=== PATIENT | male | born 1955 | race Caucasian/White ===

== ENCOUNTER → 2019-07-30 09:39 | Outpatient (CLI) | payer BC, SELFPAY ==
[2019-07-30 10:35] LABS: Cholesterol 192 mg/dL (200); High Density Lipoprotein 47 mg/dL; PSA,Total - Annual Screen 4.73 ng/mL (0.00-4.00); Triglycerides 146 mg/dL; Very Low Density Lipoprotein 29 mg/dL (5-40)
== END ==
PROVIDERS: Family Provider Family Medicine; PCP Family Medicine; Referring Provider Family Medicine; Visit Provider Family Medicine
DX: Z13.220 Encounter for screening for lipoid disorders (principal); Z12.5 Encounter for screening for malignant neoplasm of prostate
CPT/HCPCS: 36415; 80061; 84153; G0103

== ENCOUNTER → 2020-05-22 09:01 | Outpatient (CLI) | payer BC, SELFPAY ==
[2020-05-22 10:48] LABS: AST(SGOT) 14 U/L (15-37); Alanine Aminotransfer ALT/SGPT 29 U/L (16-61); Albumin, Serum 3.7 g/dL (3.2-5.0); Alkaline Phosphatase 86 U/L (45-117); Anion Gap 2 (5-15); BUN 13 mg/dL (7-18); BUN/Creat Ratio 11.7 RATIO (10-20); Calcium,Total 8.9 mg/dL (8.5-10.1); Chloride 108 mmol/L (98-107); Cholesterol 127 mg/dL (200); Creatinine, Serum 1.11 mg/dL (0.70-1.30); EST Glomerular Filtration Rate 71 mL/min (>60); Est Glom Filt Rate - Afr Amer 86 mL/min (>60); Globulin 3.6 g/dL (2.2-4.2); Glucose 88 mg/dL (74-106); High Density Lipoprotein 58 mg/dL; Potassium 4.4 mmol/L (3.5-5.1); Protein, Total 7.3 g/dL (6.4-8.2); Sodium Level 139 mmol/L (136-145); Triglycerides 48 mg/dL; Very Low Density Lipoprotein 10 mg/dL (5-40)
== END ==
PROVIDERS: PCP Family Medicine; Referring Provider Family Medicine; Visit Provider Family Medicine
DX: E78.5 Hyperlipidemia, unspecified (principal); R97.20 Elevated prostate specific antigen [PSA]
CPT/HCPCS: 36415; 80053; 80061; 84153

== ENCOUNTER → 2020-08-06 | Outpatient (CLI) | payer BC, SELFPAY ==
--- NOTE | 2020-08-06 | IMM_PTH ---
PATIENT: BHARAT HADLEY LOC: [facility] U#:[id number] AGE/SX: 64/M ROOM: RE08/06/[address]: Dr. Darian Albarran MD : 1955 BED: DIS: 08/06/2020 SPEC #: [id number] RECD: 08/08/20 13:17 STATUS: MARIO ALBERTO REQ #: [id number] JAMAL: 08/06/20 00:[address]: Darian Albarran DEPT: IMMUNOHISTOCHEMISTRY RECD BY: Mary Middleton ENTERED: 08/08/20 13:17 SP TYPE: IMMUNO OTHR DR: Dr. Isidro Gaspar MD Tissues: D - PROSTATE LEFT Procedures: P40 (add) 34BE12 (initial) PHYSICIAN & INSTITUTION [place] [id number] SPECIMEN INFORMATION: Tissue Source: D - Left prostate, apex, core biopsy Clinical Info: Elevated PSA Specimen Number: [id number] CPT code: 28014, 55236 METHODOLOGY: Deparaffinized sections of prefer/formalin-fixed tissue or PAP/DQ stained slides are incubated with monoclonal/polyclonal antibodies/oligonucleotide probes. Localization is made via biotin free immunoperoxidase method. Appropriate controls are performed and reacted as expected. Results on target cell population are indicated in the following table: RESULTS: ANTIBODY / CLONE RESULT Block D P40 (BC28) negative 34BE12 (34BE12) negative These tests were developed and their performance characteristics determined by [facility]. They may not have been cleared or approved by the U.S. Food and Drug Administration. The FDA has determined that such clearance or approval is not necessary. The above immunohistochemical/dualISH markers are ordered and reviewed by the Pathologist. INTERPRETATION: D. Left prostate, apex, core biopsy: Consistent with focus of adenocarcinoma. AM:hanh 08/09/20
--- NOTE | 2020-08-06 | PROSBIL_PTH ---
PATIENT: BHARAT HADLEY LOC: [facility] U#:[id number] AGE/SX: 64/M ROOM: RE08/06/[address]: Dr. Darain Albarran MD : 1955 BED: DIS: 08/06/2020 SPEC #: [id number] RECD: 08/07/20 07:47 STATUS: MARIO ALBERTO RESweetie #: [id number] JAMAL: 08/06/20 00:[address]: Darian Albarran DEPT: SURGICAL PATHOLOGY RECD BY: Abdullahi Patel ENTERED: 08/07/20 07:48 SP TYPE: PROST BX SHARAN DR: Dr. Isidro Gaspar MD Tissues: A - PROSTATE RIGHT B - PROSTATE RIGHT C - PROSTATE RIGHT D - PROSTATE LEFT E - PROSTATE LEFT F - PROSTATE LEFT Procedures: PROSTATE BX HEADER OPERATION: Prostate biopsy PRE-OP DIAGNOSIS: Elevated PSA TISSUE SUBMITTED: A - Right apex, B - Right mid, C - Right base, D - Left apex, E - Left mid, F - Left base MICROSCOPIC DIAGNOSIS A. Right prostate, apex, core biopsy: Mild chronic inflammation. B. Right prostate, mid, core biopsy: Benign prostatic tissue. C. Right prostate, base, core biopsy: Mild chronic inflammation. D. Left prostate, apex, core biopsy: Adenocarcinoma. [place] grade: 6 (3+3) Cores involved: 1 out of 1 core Tissue involved: <1% Greatest tumor length: <1 mm Chronic prostatitis with focal acute prostatitis. See comment. E. Left prostate, mid, core biopsy: Adenocarcinoma. [place] grade: 6 (3+3) Cores involved: 2 out of 2 cores Tissue involved: 60% Greatest tumor length: 6 mm F. Left prostate, base, core biopsy: Adenocarcinoma. [place] grade: 6 (3+3) Cores involved: 1 out of 2 cores Tissue involved: 45% Greatest tumor length: 7.5 mm AM:hanh 08/08/20 COMMENT D. Immunohistochemistry ([id number]) supports the above diagnosis. Case has been reviewed in consultation with Dr. Rogel who concurs with the above diagnosis. IDC:LAURA MICROSCOPIC DESCRIPTION Slides are reviewed. GROSS DESCRIPTION A - Received is one container designated prostate, right apex. The specimen consists of one elongated fragment of light salgado-white soft tissue measuring 1 cm in length and 0.1 cm in diameter. The specimen is totally submitted in one cassette. B - Received is one container designated prostate, right mid. The specimen consists of four elongated fragments of light salgado-white soft tissue measuring 0.3 to 0.6 cm in length and 0.1 cm in diameter. The specimen is totally submitted in one cassette. C - Received is one container designated prostate, right base. The specimen consists of two elongated fragments of light salgado-white soft tissue each measuring 1.5 cm in length and 0.1 cm in diameter. The specimen is totally submitted in one cassette. D - Received is one container designated prostate, left apex. The specimen consists of one elongated fragment of light salgado-white soft tissue measuring 1 cm in length and 0.1 cm in diameter. The specimen is totally submitted in one cassette. E - Received is one container designated prostate, left mid. The specimen consists of two elongated fragments of light salgado-white soft tissue each measuring 1.4 cm in length and 0.1 cm in diameter. The specimen is totally submitted in one cassette. F - Received is one container designated prostate, left base. The specimen consists of two elongated fragments of light salgado-white soft tissue measuring 1.4 and 2 cm in length and 0.1 cm in diameter. The specimen is totally submitted in one cassette. / SJ:rg 08/07/20 TC:0 CPT: 19611 x6 ADDENDUM ADDENDUM ADDENDUM ADDENDUM ADDENDUM ADDENDUM ADDENDUM ADDENDUM 10/12/2020 11:33 ADDENDUM 10/12/2020 11:33 ADDENDUM 10/12/2020 11:33 ADDENDUM 10/12/2020 11:33 ADDENDUM 10/12/2020 11:33 An order for Oncotype testing was received from Dr. Albarran. This necessitated case review, block and slide selection by pathologist at [facility]. Genomic Prostate Score = 52 Results of the complete Oncotype testing (Sokrati report) are viewable in EMR under: Reports - Pathology - Lab Pathology Report, Scanned.
== END | disposition home or self-care (01) ==
LOC: LABSPEC 16:43
PROVIDERS: PCP Family Medicine; Visit Provider Urology
DX: R97.20 Elevated prostate specific antigen [PSA] (principal)
CPT/HCPCS: 88305; 88341; 88342; G0416

== ENCOUNTER → 2020-10-25 14:29 | Outpatient (CLI) | payer MEDICARE, SELFPAY | PROVIDERS: PCP Family Medicine; Referring Provider Urology; Visit Provider Urology | DX: U07.1 COVID-19 (principal) | CPT/HCPCS: 87635; C9803; U0005; U0003 ==

== ENCOUNTER 2020-11-14 06:30 | Day surgery (SDC) | payer MEDICARE, SELFPAY ==
[2020-11-14 07:17] VITALS: BP 129/81; PULSE 71; RESP 16; TEMP 36.4; O2SAT 97; BMI 31.8
[2020-11-14] MEDS: Lactated Ringers 1,000 ML 100 ML IV (07:23)
--- NOTE | 2020-11-14 07:42 | PCM.HP.STD ---
Problem List (1) Prostate cancer Status: Acute History of Present Illness Date of Admission: 11/14/20 Chief Complaint: Prostate cancer The patient is a 65 year old male with prostate cancer is elected undergo radiation therapy today we will plan to place gold markers and spacer gel matrix. Past Medical History Allergies No Known Allergies Allergy (Verified 10/25/20 08:11) Home Medications: Ambulatory Orders Medication Instructions Recorded Atorvastatin Calcium 20 mg PO QHS 10/25/20 Surgical History: no surgical history Smoking Status: Light Smoker (<10/day) Tobacco Use: Cigars Review of Systems Constitutional: Denies: Chills, Fever, Weight Change HEENT: Denies: Head Aches, Sinus Congestion, Sinus Drainage Cardiovascular: Denies: Chest Pain, Palpitations Respiratory: Denies: Cough, Shortness of breath at rest, Sputum production Gastrointestinal: Denies: Abdominal Pain, Nausea, Vomiting Genitourinary: Denies: Dysuria Musculoskeletal: Denies: Joint Pain, Joint Tenderness Skin: Denies: Rash, Wounds Neurological: Denies: Numbness, Tingling, Focal weakness Psychiatric: Denies: Anxiety, Depression, Homicidal Ideations, Suicidal Ideations Hematologic/ Lymphatic: Denies: Easy Bruising, Easy Bleeding VTE Information - Inpt Only VTE Present on Admission: No - Physical Exam Vitals/I&O's: Vital Signs Temp Pulse Resp BP Pulse Ox 97.6 F L 71 16 129/81 H 97 11/14/20 07:17 11/14/20 07:17 11/14/20 07:17 11/14/20 07:17 11/14/20 07:17 Oxygen Delivery Method Room Air Weight: 100.7 kg Body Mass Index (BMI) 31.8 General: Alert, Oriented x3, Cooperative HEENT: Atraumatic, PERRLA, EOMI, Normocephalic Neck: Supple, No JVD, Negative Carotid Bruits Lungs: Clear to auscultation, Normal air movement Cardiovascular: Regular rate, No murmurs Abdomen: Bowel Sounds Present, Soft, Non Tender Extremities: No edema, Capillary Refill Less than 3 Seconds Skin: No rashes, No breakdown Musculoskeletal: No Tenderness to Palpation of Joints or Extremities Neurological: Cranial nerves II-XII grossly intact Psych/Mental Status: Normal Affect, Appropriate Current Medications Cefazolin Sodium 2 gm/ Sodium (Chloride) 110 mls @ 150 mls/hr IV PREOP ONE Stop: 11/14/20 08:13 Lactated Ringer's () 1,000 mls @ 100 mls/hr IV .Q10H LUIS Last Admin: 11/14/20 07:23 Dose: 100 mls/hr Documented by: Assessment/Plan All Active Problems Prostate cancer (Acute) Plan to place gold markers and still spacer gel matrix
--- NOTE | 2020-11-14 07:44 | DCINST_ITS ---
Discharge Diet: Light diet - advance as tolerated Discharge Activity: Return to Normal Activity Allergies/Adverse Reactions: Allergies No Known Allergies Allergy (Verified 10/25/20 08:11) Medications to take at Discharge Atorvastatin Calcium 20 mg PO QHS 10/25/20 Primary Care Physician: Isidro Gaspar MD [Primary Care Provider] - Test Results: Test results from this visit will be discussed in further detail at your follow- up appointment, if applicable. Please Follow Up With: Darian Albarran MD When: in 2 weeks, please call to make an appointment.
[2020-11-14] MEDS: Cefazolin 2 GM in 0.9% Normal Saline 100 ML IV (08:37)
--- NOTE | 2020-11-14 08:57 | OP.PCM_ITS ---
Problem List (1) Prostate cancer Status: Acute Report of Operation Date of Procedure: 11/14/20 Pre-Operative Diagnosis: Prostate cancer Post-Operative Diagnosis: Same Surgery/Procedure Performed:: Transrectal sound ultrasound-guided placement of gold fiducial markers, and also spacer organ residual matrix Description of Surgical Findings:: Patient was taken back to the operating room, after induction of anesthesia, he was placed in dorsolithotomy position. The patient had a bowel prep preoperatively. He was given IV antibiotics preoperatively. He underwent a timeout procedure. He was marked and the procedure was reviewed with the operating room staff. Once he was in dorsolithotomy position. The genitals and perineum were prepped and draped in the usual sterile fashion. I then introduced a biplanar ultrasound probe into the rectum and performed ultrasonography on the prostate. The prostate seminal vesicles, the base, the mid prostate, the apex were identified. The Denonvilliers' fascia was also identified. I first advanced the first marker in the patient's right side to the mid prostate and deployed the first portable track line marker. The second portable track line marker was then advanced under ultrasound guidance to the patient's left mid prostate . And finally the third portable track line marker was advanced of the prostate left apex and deployed under ultrasound guidance. All 3 markers were confirmed to be present within the prostate on ultrasonography. I then introduced a biplanar ultrasound probe into the rectum and performed ultrasonography and identified the Denonvilliers' fascia the prostate mid base and apex and seminal vesicles. The spacer gel mix was then prepared on the back table per manufactures instruction. Under ultrasound guidance in the midline perineum a bevel needle down we advanced through the perineum below the prostate into the space of Denonvilliers' fascia. This space which could be identified by ultrasound with a bright white layer between the prostate and the rectum. I then injected a puff of normal saline to identify the space further. After I confirmed that the needle was in the correct space in the mid prostate and the space of Denonvilliers' fascia between the rectum and the prostate. Then over the course of 15 seconds the gel matrix was injected slowly there was nice separation between the prostate and the rectum at the gel matrix was injected. The position of the gel matrix was confirmed by ultrasound. Then the injection needle was removed intact. Patient's perineum was cleaned patient was taken out of stirrups and then taken back to the PACU in good condition. Type of Anesthesia:: General Drains: none - Admit VTE Documentation VTE Present on Admission: No VTE Mechan Device Prophylaxis: SCD's
[2020-11-14 09:07] VITALS: BP 124/89; BP 129/81; PULSE 61; RESP 18; TEMP 36.3; O2SAT 94
[2020-11-14 09:15] VITALS: BP 126/81; BP 129/81; PULSE 62; RESP 18; O2SAT 93
[2020-11-14 09:28] VITALS: BP 129/81; BP 131/83; PULSE 60; RESP 18; TEMP 36.2; O2SAT 95
[2020-11-14 10:00] VITALS: BP 129/81
== END 2020-11-14 10:00 | disposition home or self-care (01) ==
LOC: SDC 06:33 → AC 06:36
PROVIDERS: PCP Family Medicine; Referring Provider Urology; Visit Provider Urology
PROC: (CPT 55874; principal; 2020-11-14 08:20)
DX: C61 Malignant neoplasm of prostate (principal); R97.20 Elevated prostate specific antigen [PSA]; E78.00 Pure hypercholesterolemia, unspecified; M54.9 Dorsalgia, unspecified; G89.29 Other chronic pain; F17.290 Nicotine dependence, other tobacco product, uncomplicated
CPT/HCPCS: 00902; 55874; 55876; J7120; J2405

== ENCOUNTER → 2020-11-29 14:46 | Outpatient (CLI) | payer MEDICARE, SELFPAY ==
[2020-11-14 07:17] VITALS: BMI 31.8
[2020-11-29 16:33] LABS: Absolute Lymphocyte Count 2.72 X10^3/uL (0.83-4.51); Absolute Neutrophil Count 7.8 X10^3/uL (2.0-7.7); Basophil# 0.06 X10^3/uL; Basophil% 0.5 % (0-1); Eosinophil# 0.06 X10^3/uL; Eosinophils% 0.5 % (0-5); Hemoglobin 17.1 g/dL (13.0-16.5); Lymphocyte # 2.72 X10^3/ul (4.0); Lymphocyte % 23.2 % (19-41); Mean Corp Hgb Conc 34.2 g/dL (32-36); Mean Corpuscular Volume 93.5 fL (80-94); Mean Platelet Vol. 9.3 fl (6.2-12.0); Monocyte# 1.02 X10^3/uL; Monocyte% 8.7 % (0-10); NRBC Flagged by Analyzer 0 % (0-5); Neutrophil % 66.7 % (47-70); Platelet Count 373 K/mm3 (150-450); RBC Distribution Width CV 13.3 % (11.6-14.6); RBC Distribution Width SD 45.4 fl (35.1-43.9); Red Blood Count 5.35 M/mm3 (4.6-6.2); White Blood Count 11.7 K/mm3 (4.4-11.0)
[2020-11-29 16:47] LABS: Creatinine, Serum 1.22 mg/dL (0.70-1.30); EST Glomerular Filtration Rate 63 mL/min (>60); Est Glom Filt Rate - Afr Amer 77 mL/min (>60); PSA,Total- Diagnostic 5.55 ng/mL (0.0-4.0)
== END ==
PROVIDERS: PCP Family Medicine; Referring Provider Radiology Radiation Oncology; Visit Provider Radiology Radiation Oncology
DX: Z01.818 Encounter for other preprocedural examination (principal); C61 Malignant neoplasm of prostate
CPT/HCPCS: 36415; 82565; 84153; 85025

== ENCOUNTER → 2020-11-30 13:49 | Outpatient (CLI) | payer MEDICARE, SELFPAY ==
[2020-11-14 07:17] VITALS: BMI 31.8
--- NOTE | 2020-11-30 13:52 | CT_ITS ---
STUDY: CT PELVIS WITH CONTRAST REASON FOR EXAM: Male, 65 years old. CA PROSTATE RADIATION DOSAGE (If Supplied By Facility): CTDIvol = ( 27.06 ) mGy, DLP = ( 1818.18 ) mGycm TECHNIQUE: Transaxial imaging of the pelvis was performed without oral contrast. IV 100ML ISOVUE 300 was administered intravenously. Individualized dose optimization techniques were used for this CT. COMPARISON: None. FINDINGS: This is a radiation planning scan with prone and supine positioning for treatment purposes. Prostate contains targeting seeds. Remainder of the soft tissues of the pelvis are normal. Osseous structures are intact without lesions. CT/CT Pelvis W/CONT Therapy IMPRESSION: 1. Radiation planning scan. 2. No unexpected findings. Electronically Signed: Sandhya Linares MD at 19:16 EDT Tel , Service support ,
== END ==
PROVIDERS: PCP Family Medicine; Referring Provider Radiology Radiation Oncology; Visit Provider Radiology Radiation Oncology
DX: C61 Malignant neoplasm of prostate (principal)
CPT/HCPCS: 51600; 72193; Q9965; Q9967

== ENCOUNTER → 2020-12-25 09:26 | Outpatient (CLI) | payer MEDICARE, SELFPAY ==
[2020-12-25 12:23] LABS: Absolute Lymphocyte Count 1.69 X10^3/uL (0.83-4.51); Absolute Neutrophil Count 5.3 X10^3/uL (2.0-7.7); Basophil# 0.05 X10^3/uL; Basophil% 0.6 % (0-1); Eosinophil# 0.12 X10^3/uL; Eosinophils% 1.5 % (0-5); Hematocrit 52.6 % (40-54); Hemoglobin 17.1 g/dL (13.0-16.5); Lymphocyte # 1.69 X10^3/ul (0.83-4.51); Lymphocyte % 21.4 % (19-41); Mean Corp Hgb Conc 32.5 g/dL (32-36); Mean Corpuscular Hgb 30.7 pg (27.0-32.0); Mean Corpuscular Volume 94.4 fL (80-94); Mean Platelet Vol. 9.3 fl (6.2-12.0); Monocyte# 0.77 X10^3/uL; Monocyte% 9.7 % (0-10); NRBC Flagged by Analyzer 0 % (0-5); Neutrophil # 5.25 X10^3/uL (2.7-7.7); Neutrophil % 66.5 % (47-70); Platelet Count 391 K/mm3 (150-450); RBC Distribution Width CV 13.4 % (11.6-14.6); RBC Distribution Width SD 47.1 fl (35.1-43.9); Red Blood Count 5.57 M/mm3 (4.6-6.2); White Blood Count 7.9 K/mm3 (4.4-11.0)
== END ==
PROVIDERS: PCP Family Medicine; Referring Provider Radiology Radiation Oncology; Visit Provider Radiology Radiation Oncology
DX: C61 Malignant neoplasm of prostate (principal)
CPT/HCPCS: 36415; 85025

== ENCOUNTER → 2021-06-05 11:51 | Outpatient (CLI) | payer MEDICARE, SELFPAY ==
--- NOTE | 2021-06-05 11:53 | RAD_ITS ---
STUDY: X-RAY - PELVIS AND BILATERAL HIPS REASON FOR EXAM: Male, 65 years old. BOTH HIP PAIN TECHNIQUE: 5 views of the hips and pelvis. COMPARISON: CT scan dated 11/30/2020. FINDINGS: No acute fracture, dislocation or osseous destruction. Osteopenia. 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 Mild pubic symphysis arthrosis. Mild sacroiliac joint arthrosis. Brachytherapy seeds. 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
== END ==
PROVIDERS: PCP Family Medicine; Referring Provider Family Medicine; Visit Provider Family Medicine
DX: M25.552 Pain in left hip (principal); M25.551 Pain in right hip
CPT/HCPCS: 73521

== ENCOUNTER → 2021-07-15 09:36 | Outpatient (CLI) | payer MEDICARE, SELFPAY ==
[2021-07-15 12:24] LABS: ALB/GLOB Ratio 0.8 RATIO (0.9-2.4); AST(SGOT) 10 U/L (15-37); Alanine Aminotransfer ALT/SGPT 26 U/L (16-61); Albumin, Serum 3.5 g/dL (3.2-5.0); Alkaline Phosphatase 102 U/L (45-117); Anion Gap 4 (5-15); BUN 15 mg/dL (7-18); BUN/Creat Ratio 12.9 RATIO (10-20); Calcium,Total 9.4 mg/dL (8.5-10.1); Chloride 107 mmol/L (98-107); Cholesterol 123 mg/dL (200); Creatinine, Serum 1.16 mg/dL (0.70-1.30); EST Glomerular Filtration Rate 67 mL/min (>60); Est Glom Filt Rate - Afr Amer 81 mL/min (>60); Globulin 4.2 g/dL (2.2-4.2); Glucose 93 mg/dL (74-106); High Density Lipoprotein 44 mg/dL; Potassium 4.3 mmol/L (3.5-5.1); Protein, Total 7.7 g/dL (6.4-8.2); Sodium Level 138 mmol/L (136-145); Triglycerides 123 mg/dL; Very Low Density Lipoprotein 25 mg/dL (5-40)
== END ==
PROVIDERS: Registered Nurse; Referring Provider Family Medicine; Visit Provider Family Medicine
DX: E78.5 Hyperlipidemia, unspecified (principal)
CPT/HCPCS: 36415; 80053; 80061

== ENCOUNTER → 2021-07-31 08:38 | Outpatient (CLI) | payer MEDICARE, SELFPAY | PROVIDERS: Referring Provider Urology; Visit Provider Urology | DX: C61 Malignant neoplasm of prostate (principal) | CPT/HCPCS: 36415; 84153 ==

== ENCOUNTER → 2021-08-14 07:18 | Outpatient (CLI) | payer MEDICARE, SELFPAY ==
--- NOTE | 2021-08-14 07:19 | ECHOD_ITS ---
Reason For Study: Abnormal EKG Procedure This was a 2D Doppler, Color Flow transthoracic echocardiogram. Exam performed in department. Left Ventricle Normal LV size. Left ventricular systolic function is normal. The estimated ejection fraction is 55 %. Diastolic function is indeterminate. No regional wall motion abnormalities noted. Right Ventricle Normal RV size. Normal systolic function. Atria Normal left atrium. Normal right atrium. No doppler evidence for ASD. Mitral Valve There is no mitral annular calcification. Normal mitral valve. Trivial mitral valve insufficiency. Tricuspid Valve Normal tricuspid valve. Trivial tricuspid valve insufficiency. Unable to estimate RV systolic pressure due to insufficient tricuspid regurgitant envelope. Aortic Valve Trisinus/trileaflet aortic valve. Normal aortic valve. Trivial aortic valve insufficiency. Pulmonic Valve The pulmonic valve is not well visualized. Trivial pulmonic valve insufficiency. Great Vessels Normal sized aortic root. Pericardium/Pleural No pericardial effusion. MMode/2D Measurements & Calculations LVIDd: 5.3 cm IVSd: 1.0 cm Ao root diam: 3.7 cm LVIDs: 4.0 cm LVPWd: 0.89 cm RVDd: 2.8 cm FS: 25.1 % LAV(MOD-bp): 33.3 ml LVAd ap4: 32.1 cm2 SV(MOD-sp4): 56.6 ml LAV(MOD-bp) Indexed: 15.2 ml/m2 LVLd ap4: 8.0 cm LAV(MOD-sp2): 38.7 ml EDV(MOD-sp4): 104.6 ml LAV(MOD-sp4): 27.2 ml EDV(sp4-el): 108.6 ml LVAs ap4: 20.2 cm2 LVLs ap4: 7.1 cm ESV(MOD-sp4): 48.1 ml ESV(sp4-el): 48.9 ml EF(MOD-sp4): 54.1 % EF(sp4-el): 55.0 % SV(sp4-el): 59.7 ml LA A4 area: 12.7 cm2 LA dimension(2D): 3.5 cm RA A4 area: 11.7 cm2 Doppler Measurements & Calculations MV E max marcus: 38.1 cm/sec Lat Peak E' Marcus: 5.3 cm/sec Med Peak E' Marcus: 3.9 cm/sec MV A max marcus: 81.9 cm/sec E/E' lat: 7.2 E/E' med: 9.7 MV E/A: 0.47 Ao V2 max: 104.0 cm/sec LV V1 max: 75.5 cm/sec PA V2 max: 95.8 cm/sec Ao max P.3 mmHg LV V1 max P.3 mmHg Ao V2 mean: 76.4 cm/sec Ao mean P.5 mmHg Ao V2 VTI: 19.9 cm ECHO/Echo Complete Interpretation Summary Left ventricular systolic function is normal. The estimated ejection fraction is 55 %. Trivial mitral valve insufficiency. Trivial tricuspid valve insufficiency. Trivial aortic valve insufficiency. Trivial pulmonic valve insufficiency. Unable to estimate RV systolic pressure due to insufficient tricuspid regurgita nt envelope. Diastolic function is indeterminate. Ordering Physician: Olaf Sin Referring Physician: Yashira Hughes Performed By: Brandi Diaz, BETTIE, RVT
--- NOTE | 2021-08-14 09:55 | STRESSREP_ITS ---
Stress Test Report Date: 08-14-2021 Procedure: Exercise tolerance test/imaging study Indications: Abnormal ECG/right bundle branch block Consent: Per the patient Procedure: The patient exercised on a Jomar protocol for 6 minutes and 30 seconds completing Stage II and 30 seconds of Stage III achieving a peak heart rate of 155 bpm (100% predicted maximal heart rate) with a peak blood pressure 162/104 mmHg and a peak MET capacity of 8 METs. The baseline ECG demonstrated normal sinus rhythm; right bundle branch block. The peak exercise ECG demonstrated continued right bundle branch block pattern with the notation of additional horizontal/downsloping ST segment depression in leads V2 and V3 (approximately 1 to 2 mm). There was an occasional PVC during exercise. The functional capacity was considered average. There was no complaint of chest discomfort during exercise or recovery. The examination was discontinued secondary to dyspnea and leg discomfort. Impression: 1. Technically adequate (percent predicted maximal heart rate greater than 85%) exercise tolerance test 2. Peak exercise ECG with continued right bundle branch block pattern with a notation of additional horizontal/downsloping ST segment depression in leads V2 and V3 (approximately 1 to 2 mm) 3. There was an occasional PVC during exercise 4. Nuclear images pending Myocardial perfusion imaging study: Technique: The patient was injected with 15.0 mCi of technetium 99m Cardiolite and subsequently rest SPECT Cardiolite nuclear imaging was obtained in the horizontal long, vertical long, and short axis views. The patient exercised on a Jomar protocol for 6 minutes and 30 seconds completing Stage II and 30 seconds of Stage III achieving a peak heart rate of 155 bpm (100% predicted maximal heart rate) with a peak blood pressure 162/104 mmHg and a peak MET capacity of 8 METs. The patient was injected with 44.5 mCi of technetium 99m Cardiolite and subsequently stress SPECT Cardiolite nuclear imaging was obtained in the horizontal long, vertical long, and short axis views. A gated Cardiolite study at peak stress was obtained. Interpretation: Rest and stress SPECT Cardiolite nuclear imaging status post realignment, normalization, and attenuation correction, demonstrates the appearance of relative uniform tracer uptake and myocardial perfusion appearing within normal limits. There is end systolic thickening and brightening. The gated Cardiolite study demonstrates myocardial thickening and inward wall motion. The reported LVEF is 54%. Impression: 1. Rest and stress SPECT Cardiolite nuclear imaging demonstrate relative uniform tracer uptake and myocardial perfusion appearing within normal limits. 2. The gated Cardiolite study reports an LVEF of 54%. This note was generated with [employer] software. It may contain incorrect words, spelling, and punctuation that were not noted in checking the note before signing.
== END ==
PROVIDERS: PCP Registered Nurse; Referring Provider Internal Medicine Cardiovascular Disease; Visit Provider Internal Medicine Cardiovascular Disease
DX: R94.31 Abnormal electrocardiogram [ECG] [EKG] (principal)
CPT/HCPCS: 78452; 93017; 93306; A9500; A4216

== ENCOUNTER 2021-09-25 12:15 | Outpatient (CLI) | payer MEDICARE, SELFPAY ==
[2021-09-25 12:34] VITALS: BP 112/70; PULSE 77; RESP 16; O2SAT 95; BMI 31.5
--- NOTE | 2021-09-25 12:37 | CT_ITS ---
STUDY: CT CHEST WITH CONTRAST-Limited REASON FOR EXAM: Male, 66 years old. ABNORMAL STRESS OVER READ ONLY . CTA coronary artery with calcium scoring performed but will be read by quality measurement specialist. RADIATION DOSAGE (If Supplied By Facility): CTDIvol = ( 25.98 ) mGy, DLP = ( 1270.39 ) mGycm TECHNIQUE: Transaxial imaging was performed following intravenous administration of IV 100mL Isovue-370. Incomplete inclusion of the lungs, according to coronary artery CTA protocol. Individualized dose optimization techniques were used for this CT. COMPARISON: None. FINDINGS: The lungs are normal in their visualized extent. There is no demonstrated pleural abnormality. Heart including pericardium and coronary arteries reported by quality measurement specialist. Normal visualized mediastinum. Normal hilar regions. Normal enhanced pulmonary arteries. Normal visualized aorta arch and descending thoracic aorta. Normal visualized osseous structures. There is no demonstrated abnormality of the visualized upper abdomen. IMPRESSION: 1. NO incidental findings that warrant additional workup/follow-up. Electronically Signed: Kwaku Mari MD ([place]oks) at 14:01 EST Reading Location ID and State: [address] [place] [address] , Service support , STUDY: CT CHEST WITH CONTRAST-Limited REASON FOR EXAM: Male, 66 years old. ABNORMAL STRESS OVER READ ONLY . CTA coronary artery with calcium scoring performed but will be read by quality measurement specialist. RADIATION DOSAGE (If Supplied By Facility): CTDIvol = ( 25.98 ) mGy, DLP = ( 1270.39 ) mGycm TECHNIQUE: Transaxial imaging was performed following intravenous administration of 100 mm Isovue-370. Incomplete inclusion of the lungs, according to coronary artery CTA protocol. Individualized dose optimization techniques were used for this CT. COMPARISON: None. FINDINGS: The lungs are normal in their visualized extent. There is no demonstrated pleural abnormality. Heart including pericardium and coronary arteries reported by quality measurement specialist. Normal visualized mediastinum. Normal hilar regions. Normal enhanced pulmonary arteries. Normal visualized aorta arch and descending thoracic aorta. Normal visualized osseous structures. There is no demonstrated abnormality of the visualized upper abdomen. CT/Limited Chest CT w/CCTA IMPRESSION: 1. NO incidental findings that warrant additional workup/follow-up. Electronically Signed: Kwaku Mari MD ([place]) at 14:02 EST ,
[2021-09-25 13:02] VITALS: BP 115/78; PULSE 67
[2021-09-25] MEDS: Nitroglycerin SL (ED/IMG/CATH) 0.4 MG TABLET SL (13:02)
[2021-09-25 13:10] VITALS: BP 114/65; PULSE 72; RESP 16; O2SAT 95
--- NOTE | 2021-09-30 07:59 | CA.SCORE ---
Calcium Scoring Date of Study:: 09/25/21 Coronary Calcium Scoring: High-resolution Computed Tomographic imaging of the chest was performed on 09/25/2021 with particular attention paid to the coronary arteries. Images from the examination were analyzed for the presence and extent of coronary artery calcification , using coronary calcium quantification software. The patient tolerated the procedure well and there were no complications. The results of the coronary calcification analysis are provided below. Findings Coronary Artery Left Main (LM): 104 Left Anterior Descending (LAD): 0 Left Circumflex (LCX): 0 Right Coronary Artery (RCA): 0.79 Total Agatston Score: 104.79 Percentile Ranking: According to prepublished reference tables between 25% and 50% of patients of the same gender/similar age had the same/lower scores Calcium Scoring Interpretation: 0 No identifiable atherosclerotic plaque. Very low cardiovascular disease risk. <5% chance of presence coronary artery disease A Negative Examination 1-10 Minimal Plaque burden. Significant coronary artery disease very unlikely. 11-100 Mild plaque burden. Likely mild or minimal coronary atherosclerosis. 101-400 Moderate plaque burden Moderate non-obstructive coronary artery disease highly likely. Over 400 Extensive plaque burden. High likelihood of at least one significant coronary stenosis (>50% diameter) Calcium Score: 101 - 400 Moderate non-obstructive coronary artery disease highly like Conclusion: Continue vascular risk evaluation as deemed appropriate This note was generated using a voice recognition system and there may be incorrect words, spelling or punctuation that were not noted when reviewing the office note prior to saving.
--- NOTE | 2021-09-30 08:03 | CCTA.WCONT ---
CCTA w/Cont Coronary Arteries Date of Study:: 09/25/21 Abnormal ECG; Abnormal Stress Test Consent:: Per Patient High-resolution Computed Tomographic imaging of the chest was performed on 09/25/2021 with particular attention paid to the coronary arteries. Images from the examination were analyzed for the presence and extent of of underlying atherosclerotic coronary artery disease and coronary artery calcification. The patient tolerated the procedure well and there were no complications. The results of the coronary calcification analysis are provided below. LEFT MAIN CORONARY ARTERY: The left main coronary artery is a large vessel giving rise to the left anterior descending and left circumflex coronary arteries. It appears to be patent with no obvious angiographically significant appearing CAD. LEFT ANTERIOR DESCENDING CORONARY ARTERY: The left anterior descending coronary artery is a large vessel giving rise to a diagonal branching system. The LAD appears to be patent with notation of a moderate partially obstructive calcified and noncalcified plaque near the takeoff of the diagonal branch system. LEFT CIRCUMFLEX CORONARY ARTERY: The left circumflex coronary artery is a moderate to large vessel giving rise to a small to moderate OM system. It appears to be patent with no angiographically significant appearing CAD. RIGHT CORONARY ARTERY: The right coronary artery appears to be a large dominant vessel giving rise to a right PDA system. The RCA appears to be patent with notation of a mid to nonobstructive, noncalcified, soft plaque. THORACIC AORTA: The thoracic aorta appears to be patent with no obvious angiographically significant atherosclerotic peripheral arterial disease appreciated. PULMONARY ARTERY: The main pulmonary artery and proximal portions of the right and left pulmonary artery appear to be patent with no obvious filling defects. LEFT ATRIUM/APPENDAGE: The left atrial appendage appears to be patent with no obvious filling defects. MITRAL VALVE: The mitral valve appears to be a bileaflet valve. AORTIC VALVE: The aortic valve appears to be a trileaflet valve. LEFT VENTRICLE: The left ventricle appears to demonstrate grossly normal left ventricular size, wall motion, and systolic function, however, the calculated LVEF is 40%. CORONARY CALCIUM SCORE: The coronary calcium score was reported at 105. According to prepublished reference tables this is compatible with moderate plaque burden. note was generated using a voice recognition system and there may be incorrect words, spelling or punctuation that were not noted when reviewing the office note prior to saving.
== END 2021-09-25 23:59 | disposition short-term general hospital (02) ==
PROVIDERS: PCP Registered Nurse; Referring Provider Physician Assistant Medical; Visit Provider Physician Assistant Medical
DX: R94.39 Abnormal result of other cardiovascular function study (principal); I25.10 Atherosclerotic heart disease of native coronary artery without angina pectoris
CPT/HCPCS: 75571; 75574; 76380; Q9967; A4216

== ENCOUNTER 2021-10-15 10:17 | Observation (INO) | payer MEDICARE, SELFPAY ==
--- NOTE | 2021-08-27 09:55 | RAD_ITS ---
STUDY: X-RAY CHEST REASON FOR EXAM: Male, 65 years old. Abnormal stress test TECHNIQUE: PA and lateral views of the chest. COMPARISON: None. FINDINGS: The lungs are clear and expanded. There is no demonstrated pleural abnormality. Normal size heart. Normal mediastinum and wilman. Normal visualized pulmonary arteries. Normal visualized aortic arch and descending thoracic aorta. Normal visualized thoracic spine. Normal visualized ribs, clavicles, and shoulders. There is no demonstrated abnormality of the visualized soft tissue structures of the upper abdomen. RAD/Chest PA and Lateral IMPRESSION: Normal x-ray examination of the chest. Electronically Signed: Devang Flanagan MD at 16:11 EST Tel , Service support ,
[2021-08-27 10:53] LABS: Hematocrit 49.6 % (40-54); Hemoglobin 16.7 g/dL (13.0-16.5); Mean Corp Hgb Conc 33.7 g/dL (32-36); Mean Corpuscular Hgb 31.6 pg (27.0-32.0); Mean Corpuscular Volume 93.8 fL (80-94); Mean Platelet Vol. 8.8 fl (6.2-12.0); Platelet Count 359 K/mm3 (150-450); RBC Distribution Width CV 12.8 % (11.6-14.6); RBC Distribution Width SD 44.1 fl (35.1-43.9); Red Blood Count 5.29 M/mm3 (4.6-6.2); White Blood Count 7.3 K/mm3 (4.4-11.0)
[2021-08-27 11:17] LABS: Anion Gap 8 (5-15); BUN 12 mg/dL (7-18); BUN/Creat Ratio 10.8 RATIO (10-20); Calcium,Total 9.1 mg/dL (8.5-10.1); Chloride 107 mmol/L (98-107); Creatinine, Serum 1.11 mg/dL (0.70-1.30); EST Glomerular Filtration Rate 71 mL/min (>60); Est Glom Filt Rate - Afr Amer 85 mL/min (>60); Glucose 92 mg/dL (74-106); Potassium 4.3 mmol/L (3.5-5.1); Sodium Level 141 mmol/L (136-145)
[2021-08-27 11:55] LABS: Partial Thromboplast Time 32.1 Seconds (24.1-36.2)
[2021-08-27 12:02] LABS: Prothrombin Time (Protime)PT. 12.1 SECONDS (11.7-14.9)
[2021-10-10 17:10] LABS: Absolute Lymphocyte Count 2.14 X10^3/uL (0.83-4.51); Absolute Neutrophil Count 5.7 X10^3/uL (2.0-7.7); Basophil# 0.07 X10^3/uL; Basophil% 0.8 % (0-1); Eosinophil# 0.21 X10^3/uL; Eosinophils% 2.3 % (0-5); Hematocrit 48.3 % (40-54); Hemoglobin 16.5 g/dL (13.0-16.5); Lymphocyte # 2.14 X10^3/ul (0.83-4.51); Lymphocyte % 23.6 % (19-41); Mean Corp Hgb Conc 34.2 g/dL (32-36); Mean Corpuscular Hgb 31.8 pg (27.0-32.0); Mean Corpuscular Volume 93.1 fL (80-94); Mean Platelet Vol. 8.8 fl (6.2-12.0); Monocyte# 0.96 X10^3/uL; Monocyte% 10.6 % (0-10); NRBC Flagged by Analyzer 0 % (0-5); Neutrophil # 5.65 X10^3/uL (2.7-7.7); Neutrophil % 62.4 % (47-70); Platelet Count 326 K/mm3 (150-450); RBC Distribution Width CV 12.8 % (11.6-14.6); RBC Distribution Width SD 43.7 fl (35.1-43.9); Red Blood Count 5.19 M/mm3 (4.6-6.2); White Blood Count 9.1 K/mm3 (4.4-11.0)
[2021-10-10 17:45] LABS: Prothrombin Time (Protime)PT. 12.5 SECONDS (11.7-14.9)
[2021-10-10 17:56] LABS: Anion Gap 3 (5-15); BUN 17 mg/dL (7-18); BUN/Creat Ratio 14.9 RATIO (10-20); Calcium,Total 8.9 mg/dL (8.5-10.1); Chloride 111 mmol/L (98-107); Creatinine, Serum 1.14 mg/dL (0.70-1.30); EST Glomerular Filtration Rate 68 mL/min (>60); Est Glom Filt Rate - Afr Amer 83 mL/min (>60); Glucose 86 mg/dL (74-106); Potassium 4.4 mmol/L (3.5-5.1); Sodium Level 141 mmol/L (136-145)
[2021-10-14 07:55] VITALS: BMI 32.5
--- NOTE | 2021-10-14 19:05 | HP.PCM_ITS ---
History and Physical Date of Admission: 10/15/21 [facility] [id number] [place], [place] [phone] OFFICE VISITDate of Service: 10/10/21 MR#:[id number]:[id number]: JOMAR HADLEY ARep #:[id number]:[id number] Provider:Dr. Olaf Sin, MDAge/Sex: 66/M Locat ion:BMS.WHGStatus:Signed HPI HPI History of Present Illness Surgical H&P: Yes Details: This is a 66-year-old white male who presents today for outpatient cardiovascular follow-up/precardiac catheterization visit based upon concerns of an underlying abnormal ECG demonstrating a right bundle branch block pattern and an abnormal exercise tolerance test/imaging study (abnormal ECG portion of the study) and now an abnormal coronary CTA evaluation demonstrating findings of the LAD with the appearance of moderate partially obstructive calcified and noncalcified plaque. At the present time he states overall he believes he feels good. He states that since his diagnosis of prostate carcinoma and undergoing radiation therapy he does admit he felt somewhat sluggish or more fatigued. He is not sure whether it represents that diagnosis and therapy versus being related to another diagnosis. He does not complain at the moment of otherwise classic angina pectoris. There is been no obvious evidence of acute CHF or pulmonary edema. There is been no near-syncope or syncope. He does have an ECG from today that demonstrates a sinus rhythm with a left axis deviation, right bundle branch block pattern, and a left anterior fascicular block pattern. He has undergone noninvasive evaluation with a transthoracic echocardiogram, and exercise tolerance test/imaging study, and his coronary CTA. The results are noted below. They have been reviewed with him. Proceeding with a diagnostic cardiac catheterization procedure has been discussed with him. He has been agreeable to this approach. This is tentatively schedule for 10-15-2021. Intake Vital Signs 10/10/21 15:46 Height 5 ft 10 in Weight: 227 lb BMI 32.5 BP 122/82 H Blood Pressure Location Lt brachial Position Sitting Respiration 16 Pulse 80 Pulse Source Auscultation Intake Visit Reasons: UPDATE H & P Venetian Blind [employer]ic Required: No Accompanied by: Allergies No Known Allergies Allergy (Verified 10/10/21 15:46) Medications atorvastatin 20 mg PO QHS 10/25/20 [History Confirmed 10/10/21] aspirin 81 mg tablet,delayed release 81 mg PO DAILY 08/15/21 [History Confirmed 10/10/21] FOR[facility]LY [facility] Medical History Abnormal cardiac CT angiography Abnormal stress test Prostate cancer RBBB (right bundle branch block) Surgical History History of arthroscopy of left knee History of total knee replacement (TKR) Family History Brother Diabetes Mother CVA (cerebral vascular accident) Hypertension Social History Smoking Status: Light Smoker (<10/day) alcohol intake: current details: Moderate substance use type: does not use caffeine: Yes Type: coffee Number of servings: 4 ROS Const Const: Negative for fatigue, weakness, frequent falls, excessive sweating, weight gain or weight loss Eyes Eyes: Negative for transient loss of vision, blurry vision or change in vision ENT ENT: Negative for dizziness or balance problems Cardio Chest Pain: No Palpitations: No Edema: None Muscle aches with walking: None Resp Respiratory: Negative for SOB with activity or SOB at rest GI GI: Negative vomiting or vomiting blood/hematemesis : Negative for hematuria Musc Musc: Negative for muscle aches/ myalgia, muscle weakness, joint pain or balance problems Skin Skin: Negative non-healing lesions or rash Neuro Neuro: Negative for dizziness, lightheadedness, orthostatic symptoms, frequent falls, weakness or blurry vision Apollo Hematologic/Lymphatic: Negative for easy bleeding Endo Endo: Negative for fatigue or excessive sweating Psych Psych: Negative for anxiety or depression Allergy Allergy/Immunology: Negative for hives and Negative for rash Cardiology Exam Const Appearance: cooperative, healthy appearing, comfortable, no acute distress, well developed and well groomed Nutritional Appearance: overweight Orientation: alert, awake and oriented x3 Head Head: normal to inspection, normocephalic and atraumatic Ears: hearing grossly normal bilaterally Nose: external nose normal Face and Sinus: face symmetric Eyes Eyelids: eyelids normal Conjunctivae: conjunctivae normal Pupils: PERRL EOM: EOM intact bilaterally Neck Neck: normal visual inspection and full ROM Carotids: normal carotid upstroke Chest Chest inspection: normal inspection of the chest, symmetric chest movement and normal respiratory effort Auscultation: Bilateral: Clear to Auscultation Cardio Palpation: normal PMI Rate: regular rate Rhythm: regular rhythm Heart sounds: S1 normal and S2 normal GI GI: normal to inspection, soft and bowel sounds present Neuro General: patient alert, patient awake, patient oriented x3 and moves all extremities Skin Skin: no rashes or lesions noted Extremities Pulses: Normal: Right Radial Pulse and Left Radial Pulse Lower Extremity Edema: None: Bilateral Psych Psychological: normal affect Supplemental Info Supplemental Information Echocardiogram: 08-14-2021 Interpretation Summary Left ventricular systolic function is normal. The estimated ejection fraction is 55 %. Trivial mitral valve insufficiency. Trivial tricuspid valve insufficiency. Trivial aortic valve insufficiency. Trivial pulmonic valve insufficiency. Unable to estimate RV systolic pressure due to insufficient tricuspid regurgitant envelope. Diastolic function is indeterminate. Stress Test Report Date: 08-14-2021 Procedure: Exercise tolerance test/imaging study Indications: Abnormal ECG/right bundle branch block Consent: Per the patient Procedure: The patient exercised on a Jomar protocol for 6 minutes and 30 seconds completing Stage II and 30 seconds of Stage III achieving a peak heart rate of 155 bpm (100% predicted maximal heart rate) with a peak blood pressure 162/104 mmHg and a peak MET capacity of 8 METs. The baseline ECG demonstrated normal sinus rhythm; right bundle branch block. The peak exercise ECG demonstrated continued right bundle branch block pattern with the notation of additional horizontal/downsloping ST segment depression in leads V2 and V3 (approximately 1 to 2 mm). There was an occasional PVC during exercise. The functional capacity was considered average. There was no complaint of chest discomfort during exercise or recovery. The examination was discontinued secondary to dyspnea and leg discomfort. Impression: 1. Technically adequate (percent predicted maximal heart rate greater than 85%) exercise tolerance test 2. Peak exercise ECG with continued right bundle branch block pattern with a notation of additional horizontal/downsloping ST segment depression in leads V2 and V3 (approximately 1 to 2 mm) 3. There was an occasional PVC during exercise 4. Nuclear images pending Myocardial perfusion imaging study: Technique: The patient was injected with 15.0 mCi of technetium 99m Cardiolite and subsequently rest SPECT Cardiolite nuclear imaging was obtained in the horizontal long, vertical long, and short axis views. The patient exercised on a Jomar protocol for 6 minutes and 30 seconds completing Stage II and 30 seconds of Stage III achieving a peak heart rate of 155 bpm (100% predicted maximal heart rate) with a peak blood pressure 162/104 mmHg and a peak MET capacity of 8 METs. The patient was injected with 44.5 mCi of technetium 99m Cardiolite and subsequently stress SPECT Cardiolite nuclear imaging was obtained in the horizontal long, vertical long, and short axis views. A gated Cardiolite study at peak stress was obtained. Interpretation: Rest and stress SPECT Cardiolite nuclear imaging status post realignment, normalization, and attenuation correction, demonstrates the appearance of relative uniform tracer uptake and myocardial perfusion appearing within normal limits. There is end systolic thickening and brightening. The gated Cardiolite study demonstrates myocardial thickening and inward wall motion. The reported LVEF is 54%. Impression: 1. Rest and stress SPECT Cardiolite nuclear imaging demonstrate relative uniform tracer uptake and myocardial perfusion appearing within normal limits. 2. The gated Cardiolite study reports an LVEF of 54%. CCTA w/Cont Coronary Arteries Date of Study:: 09/25/21 Abnormal ECG; Abnormal Stress Test Consent:: Per Patient High-resolution Computed Tomographic imaging of the chest was performed on 09/25/2021 with particular attention paid to the coronary arteries. Images from the examination were analyzed for the presence and extent of of underlying atherosclerotic coronary artery disease and coronary artery calcification. The patient tolerated the procedure well and there were no complications. The results of the coronary calcification analysis are provided below. LEFT MAIN CORONARY ARTERY: The left main coronary artery is a large vessel giving rise to the left anterior descending and left circumflex coronary arteries. It appears to be patent with no obvious angiographically significant appearing CAD. LEFT ANTERIOR DESCENDING CORONARY ARTERY: The left anterior descending coronary artery is a large vessel giving rise to a diagonal branching system. The LAD appears to be patent with notation of a moderate partially obstructive calcified and noncalcified plaque near the takeoff of the diagonal branch system. LEFT CIRCUMFLEX CORONARY ARTERY: The left circumflex coronary artery is a moderate to large vessel giving rise to a small to moderate OM system. It appears to be patent with no angiographically significant appearing CAD. RIGHT CORONARY ARTERY: The right coronary artery appears to be a large dominant vessel giving rise to a right PDA system. The RCA appears to be patent with notation of a mid to nonobstructive, noncalcified, soft plaque. THORACIC AORTA: The thoracic aorta appears to be patent with no obvious angiographically significant atherosclerotic peripheral arterial disease appreciated. PULMONARY ARTERY: The main pulmonary artery and proximal portions of the right and left pulmonary artery appear to be patent with no obvious filling defects. LEFT ATRIUM/APPENDAGE: The left atrial appendage appears to be patent with no obvious filling defects. MITRAL VALVE: The mitral valve appears to be a bileaflet valve. AORTIC VALVE: The aortic valve appears to be a trileaflet valve. LEFT VENTRICLE: The left ventricle appears to demonstrate grossly normal left ventricular size, wall motion, and systolic function, however, the calculated LVEF is 40%. CORONARY CALCIUM SCORE: The coronary calcium score was reported at 105. According to prepublished r eference tables this is compatible with moderate plaque burden. Labs: LDL Cholesterol 54 mg/dL (0-130) HDL Cholesterol 44 mg/dL (40-) Triglycerides 123 mg/dL (-199) VLDL Cholesterol 25 mg/dL (5-40) Diagnostics: Electrocardiogram Echocardiogram Stress Test NM Stress Test Chest X-Ray Coronary Angiography CT Pulmonary: No Data to Display Assessment and Plan Assessment and Plan (1) Abnormal cardiac CT angiography: Status: Acute Orders: Orders: 12 Lead EKG performed by BMS Today Left Heart Cath/COR/LV Percut Today Basic Metabolic Profile (BMP) Today Partial Thromboplast Time Today Prothrombin Time w/INR Today CBC W/Diff, Automated Today Plan - Dr. Olaf Sin MD: He does have an abnormal cardiac CTA. Based upon this, along with his clinical history and other objective findings, it was felt reasonable that he undergo definitive cardiovascular evaluation with respect to the possibility of CAD with a diagnostic cardiac catheterization. The procedure and risks have been discussed with him. He was agreeable to this approach. In the meantime he will continue his current medical management. (2) Abnormal stress test: Status: Acute Orders: Orders: 12 Lead EKG performed by BMS Today Left Heart Cath/COR/LV Percut Today Basic Metabolic Profile (BMP) Today Partial Thromboplast Time Today Prothrombin Time w/INR Today CBC W/Diff, Automated Today Plan - Dr. Olaf Sin MD: As noted above his stress test (ECG portion) was considered concerning/abnormal. His stress test is a mixed stress test between his ECG portion and the myocardial perfusion study. Based upon his coronary CTA there is concern of underlying CAD especially in the LAD distribution. Thus he is going to proceed with further evaluation as described above. (3) RBBB (right bundle branch block): Status: Acute Orders: Orders: 12 Lead EKG performed by BMS Today Left Heart Cath/COR/LV Percut Today Basic Metabolic Profile (BMP) Today Partial Thromboplast Time Today Prothrombin Time w/INR Today CBC W/Diff, Automated Today Plan - Dr. Olaf Sin MD: He does have an abnormal ECG as previously noted demonstrating his right bundle branch block pattern. It continues with the appearance of a left anterior fascicular block pattern as well. He has undergone noninvasive valuation. He will continue additional cardiovascular evaluation as noted. Plan Details Other Orders: Orders: 12 Lead EKG performed by BMS Today R94.31 Left Heart Cath/COR/LV Percut Today R94.31 Basic Metabolic Profile (BMP) Today R94.31 Partial Thromboplast Time Today R94.31 Prothrombin Time w/INR Today R94.31 CBC W/Diff, Automated Today C61, R94.31 Additional Comments: Thank you for allowing me to participate in the care of your patient. Please don't hesitate to call if any issues arise. This note was generated using a voice recognition system and there may be incorrect words, spelling or punctuation that were not noted when reviewing the office note prior to saving. Follow Up: 6 Months (PFM ) COVID (Procedure Consent) Procedure Criteria Procedure Criteria: Yes Elective The surgeon/proceduralist and patient have discussed in detail the risk of exposure to and/or potential harm posed by the COVID-19 virus with having a surgery/procedure at this time versus the risk of delaying the surgery/procedure. It is not possible to know either the risk of delaying the surgery or procedure or chance of getting an infection with perfect accuracy, but a joint decision was made between the patient and the surgeon/proceduralist to proceed at this time with the scheduled surgery/procedure as indicated on the consent form. Coding Level of Care Code Off vis,est,level [address] angiography R93.1 Abnormal stress test R94.39 RBBB (right bundle branch block) I45.10 Coding Level of Care Code Off vis,est,level [address] angiography R93.1 Abnormal stress test R94.39 RBBB (right bundle branch block) I45.10 10/10/21 1641<Electronically signed by Olaf Sin MD>Date Olaf Sin MD Cosigner Signature:Date (if applicable) CC: LUMBER STACKER OPERATOR-[facility]olia [facility] ~ Assessment & Plan Addt'l Comments I have re-examined the patient. There are no clinical changes since date of exam
[2021-10-15] VITALS (13 sets, daily range): BP systolic 123–157; BP diastolic 74–95; PULSE 55–74; RESP 16–18; TEMP 36.5–36.8; O2SAT 97–100; BMI 32.5
--- NOTE | 2021-10-15 10:13 | CL.D_ITS ---
Patient Name: BHARAT HADLEY Study Date: 10/15/2021 Performing: Olaf Sin MD Ht: 70 inches 178 cm : 1955 Wt: 227.4 lbs 103 kg Age: 66 Gender: male BSA: 2.2 PROCEDURE(S) PERFORMED DC01-(90055)LHC/COR/LV CLINICAL PROFILE AND INDICATIONS Indications: Suspected CAD Heart Failure: None CONCLUSIONS Elevated Left Ventricular End Diastolic Pressure Segmented LV systolic dysfunction- Mild LVEF: by LV gram 45 % Single vessel CAD of the LAD system RECOMMENDATIONS Risk factor modification Medical therapy Referred for immediate PCI DESCRIPTION OF PROCEDURE The patient arrived to the procedure lab. The risks and benefits of the procedure as well as a full d escription of our services here and current unavailability of surgical backup were fully explained to the patient and/or their significant other prior to the catheterization. The Timeout was completed, verifying the correct patient and procedure. The patient's procedural site was prepped and draped in the usual fashion. Local anesthetic was given subcutaneously to right radial region with Lidocaine 2% . Using a modified Seldinger technique, arterial access was obtained via the right radial artery, a 6 Fr sheath was inserted. Left Coronary Artery selective angiography was performed in multiple views u sing a 5 Fr. 4.0 Mcgee catheter. Right Coronary Artery selective angiography was then performed in mu ltiple views using a 5 Fr. 4.0 Mcgee catheter. Left Ventriculography was performed in CHANG projection using a 5 Fr. Pigtail catheter. LV to AO pullback pressures were then recorded. CORONARY ANGIOGRAPHY DOMINANCE: Right Dominant LEFT HEART ASSESSMENT Left Ventricular Ejection Fraction: by LV Gram 45 % Anterior Hypokinesis. Apical Hypokinesis Elevated Left Ventricular End Diastolic Pressure LVEDP: 17 mmHg LEFT MAIN: Angiographically normal LEFT ANTERIOR DESCENDING ARTERY: PROX LAD: hazy: 75 % Stenosis DIAGONAL 1: Proximal - small caliber vessel: 85 % Stenosis CIRCUMFLEX ARTERY: Angiographically normal RIGHT CORONARY ARTERY: Angiographically normal AORTIC ROOT: Angiographically normal COMPLICATIONS PROCEDURE MEDICATIONS Versed 1 mg IV Fentanyl 50 mcg IV Oxygen: 2 L/min via nasal cannula Heparin given IA 10/15/2021 09:40:18 Heparin 6000 unit(s) IV 10/15/2021 09:57:53 Verapamil 2.5mg, Ntg 100mcgs, 3000 units of Heparin given IA 10/15/2021 09:40:18 SUMMARY OF HEMODYNAMIC DATA Time AIR REST ECG 07:43:31 ECG 08:47:42 Art 118/62 (83) 09:07:19 LV 147/-15, 16 09:48:17 LV 138/-11, 17 09:48:23 LV 135/-12, 14 09:49:07 LV 142/-12, 18 09:49:14 LVp 143/-12, 13 09:49:21 AOp 137/71 (96) 09:49:26 Signed By Olaf Sin MD On 10/15/2021 10:12:18 AM Olaf Sin MD
[2021-10-15] MEDS: 0.9% Normal Saline 1,000 ML 75 ML IV (10:30)
--- NOTE | 2021-10-15 10:32 | PCIREPORT_ITS ---
PCI Cardiac Cath Report PCI Report: Procedure performed; 1. Successful PCI of the ostial/proximal LAD, 75% stenosis calcified, predilated using 2.5 x 12 mm Emerge balloon Followed by placement of drug-eluting stent 3.5 x 18 mm DENNIS/Orsiro Amanda, postdilated with 3.5 x 12 mm NC balloon With reduction of stenosis to 0%, pre and post procedure SB-3 flow. 2. Placement of TR band to the right radial artery arteriotomy site. Consent; Risk and benefit of the procedure explained in detail to the patient, elected to proceed informed consent obtained. Preprocedure diagnosis; 66-year-old patient seen and evaluated as an outpatient by his primary obstetric anaesthetist Dr. Sin Patient has symptoms of fatigue, being treated for carcinoma of the prostate with radiation. Has abnormal EKG with right bundle branch block and abnormal exercise tolerance with change in the electrocardiogram subsequently evaluated by CTA coronary showed moderate partially obstructive calcified lesion involving the proximal LAD. Based on the clinical presentation he was brought into the [facility] and underwent cardiac catheterization Findings revealed single-vessel CAD involving the ostial and the proximal LAD calcified 75%, First diagonal?D1, a small caliber vessel 85% stenosis. Left main, left circumflex and RCA normal angiographically RCA large dominant. Mildly reduced LV systolic function ejection fraction around 45%. Approach; Right radial artery approach. Interventional equipment and medications used; 1. 6 Icelandic JL4 guide catheter 2. 0.014 BMW universal straight 190 cm wire 3. 0.035 to 60 cm J exchange wire 4. 2.5 x 12 mm emerge balloon 5. 3.5 x 18 mm drug-eluting stent/DENNIS/Orsiro Amanda 6. 3.5 x 12 mm NC emerge balloon Medication used in the [facility]; 1. Brilinta loading dose 180 mg 2. Total of 9000 units of heparin 3. Aspirin 325 mg ACT level was acceptable 267, additional 2000 units of heparin was given Procedure in detail; We proceed with a 6 Icelandic JR4 guide catheter advanced ascending aorta through the right radial artery approach, cannulated the left main without difficulty Following this angiographic view was obtained including spider, AP caudal and right caudal view, following this we will proceed with the guidewire across the lesion Followed by predilatation using 2.5 mm balloon followed by placement of drug- eluting stent as a specified followed by postdilatation using 3.5 NC balloon and achieved good result with no complication in the [facility] in particular no evidence of dissection. Conclusion; Successful PCI of ostial/proximal LAD stenosis with placement of drug-eluting stent Recommendations; 1. Patient to continue on DAPT/Brilinta 90 mg twice daily in addition to low- dose aspirin 81 mg for 1 year 2. Patient to continue follow-up with his primary obstetric anaesthetist Dr. Sin for continuation of cardiac care plan 3. Patient will be rescheduled for phase 1 cardiac rehab program at [facility]. Silvia Dior MD,FACC,[facility]
--- NOTE | 2021-10-15 11:00 | EKG12_ITS ---
Test Reason : POSTPCI Blood Pressure : / mmHG Vent. Rate : 059 BPM Atrial Rate : 059 BPM P-R Int : 170 ms QRS Dur : 136 ms QT Int : 434 ms P-R-T Axes : 052 -68 -49 degrees QTc Int : 429 ms Sinus bradycardia Right bundle branch block Left anterior fascicular block Bifascicular block T wave abnormality, consider inferior ischemia Abnormal ECG Confirmed by MARIA ALEJANDRA CISNEROS, LOAF ([id number]), assignment editor DREW SAHNI ([id number]) on 10/17/2021 8:30:47 AM Referred By: Olaf Bess Confirmed By:OLAF BESS MD
--- NOTE | 2021-10-15 12:29 | NURSING ---
TR band removed at this time. Small marble size hematoma noted, no bleeding. Held pressure. Site became soft. Dsg applied. Pt tolerated well.
--- NOTE | 2021-10-15 13:19 | CRPHASE1 ---
Patient Communication PHII Cardiac Rehab Discussed with Patient:: Yes Guide to Cardiac Rehab Given to Patient:: Yes Cardiac Rehab Facility Choice List Given to Patient:: Yes Choice Program [facility] PHII:: Communication Given to CR Hospital Intern:: Silvia Dior Phase II Cardiac Rehab:: Yes Sessions:: 36 sessions - 3 days/wk, 12 weeks Cardiac Rehabilitation Info Cardiac Rehabilitation Program Information: Cardiac Rehabilitation is important for patients like you who are recovering from a heart problem. Cardiac rehabilitation programs are recognized as integral to the continued care of the patient with coronary heart disease. The cardiac rehabilitation program is designed to optimize a patient's physical, psychological, and social functioning. Health animal care supervisor work in cardiac rehabilitation programs and assist you with getting the treatments you need to get stronger and healthier - like exercise, healthy eating habits, and medications. Cardiac rehabilitation has been show to help people with heart problems live longer and have better life enjoyment than people who do not go to cardiac rehabilitation. Please contact the Cardiac Rehabilitation Program at [facility] at in two weeks if you have not heard from them.
--- NOTE | 2021-10-15 13:20 | CRPH1.INSTRU ---
General Education CAD and cardiac anatomy and function:: Patient communicates acknowledgment, Family communicates acknowledgment Explanation of diagnoses and procedures:: Patient communicates acknowledgment, Family communicates acknowledgment Sign/Symptoms of SD:: Patient communicates acknowledgment, Family communicates acknowledgment Antiplatelet therapy: Patient communicates acknowledgment, Family communicates acknowledgment Proper use of NTG-SL: Patient communicates acknowledgment, Family communicates acknowledgment Emergency procedures and activation of EMS: Patient communicates acknowledgment, Family communicates acknowledgment Compliance of all prescribed medications: Patient communicates acknowledgment, Family communicates acknowledgment Smoking Patient Nicotine/Smoking Risk Factors Are:: Cigarettes Recommendations Include:: Participation in a smoking cessation program Nicotine/Smoking Response Code:: Patient communicates acknowledgment, Family communicates acknowledgment Dyslipidemia Recommendations Include:: Lipid profile not available, Therapeutic Lifestyle Change dietary guidelines Dyslipidemia Response Code:: Patient communicates acknowledgment, Family communicates acknowledgment Overweight/Obesity Patient Overweight/Obesity Risk Factors Are:: Obesity - > or = 30 Recommendations Include:: Weight loss of 5-10%, Reduced calorie diet, Exercise 5-7 times/week Overweight/Obesity:: Patient communicates acknowledgment, Family communicates acknowledgment Hypertension Recommendations Include:: Maintain BP <130/85, DASH dietary guidelines, Decrease/maintain normal body weight, Moderation of ETOH Hypertension:: Patient communicates acknowledgment, Family communicates acknowledgment Sedentary Patient Sedentary Risk Factors Are:: Lack of regular exercise Recommendations Include:: Aerobic exercise 5-7 times/week for 20-30 minutes continuously, Benefits of regular exercise, Discussed home walking program, Monitored Outpatient Cardiac Rehab Sedentary Response Code:: Family communicates acknowledgment Stress Recommendations Include:: Identification of stressors, and assessment of coping skills, Stress management techniques Stress Response Code:: Patient communicates acknowledgment, Family communicates acknowledgment
[2021-10-15] MEDS: Carvedilol 3.125 MG TABLET PO ×2 (13:43→21:39)
--- NOTE | 2021-10-15 16:37 | PN.CARD_ITS ---
Subjective Subjective The patient underwent diagnostic cardiac catheterization earlier this day. He was diagnosed with LAD disease which subsequently led to LAD PCI. Objective Data Vital Signs: Vital Signs Temp Pulse Resp BP Pulse Ox 98.2 F 64 18 129/92 H 100 10/15/21 10:35 10/15/21 14:45 10/15/21 12:45 10/15/21 12:45 10/15/21 12:45 Oxygen Delivery Method Room Air Weight: 227 lb Body Mass Index (BMI) 32.5 Intake & Output: Intake and Output for Last 24 Hours 10/13/21 10/14/21 10/15/21 23:59 23:59 23:59 Intake Total 240 / 240 Balance 240 / 240 Lab / Micro Data Result Diagrams: 10/10/21 16:49 10/10/21 16:49 Cardiology Labs/Tests Rhythm: Sinus rhythm Cardiac Cath: CONCLUSIONS Elevated Left Ventricular End Diastolic Pressure Segmented LV systolic dysfunction- Mild LVEF: by LV gram 45 % Single vessel CAD of the LAD system RECOMMENDATIONS Risk factor modification Medical therapy Referred for immediate PCI DESCRIPTION OF PROCEDURE The patient arrived to the procedure lab. The risks and benefits of the procedure as well as a full description of our services here and current unavailability of surgical backup were fully explained to the patient and/or their significant other prior to the catheterization. The Timeout was completed, verifying the correct patient and procedure. The patient's procedural site was prepped and draped in the usual fashion. Local anesthetic was given subcutaneously to right radial region with Lidocaine 2%. Using a modified Seldinger technique, arterial access was obtained via the right radial artery, a 6Fr sheath was inserted. Left Coronary Artery selective angiography was performed in multiple views using a 5 Fr. 4.0 [place] catheter. Right Coronary Artery selective angiography was then performed in multiple views using a 5 Fr. 4.0 [place] catheter. Left Ventriculography was performed in CHANG projection using a 5 Fr. Pig[place] catheter. LV to AO pullback pressures were then recorded. CORONARY ANGIOGRAPHY DOMINANCE: Right Dominant LEFT HEART ASSESSMENT Left Ventricular Ejection Fraction: by LV Gram 45 % Anterior Hypokinesis. Apical Hypokinesis Elevated Left Ventricular End Diastolic Pressure LVEDP: 17 mmHg LEFT MAIN: Angiographically normal LEFT ANTERIOR DESCENDING ARTERY: PROX LAD: hazy: 75 % Stenosis DIAGONAL 1: Proximal - small caliber vessel: 85 % Stenosis CIRCUMFLEX ARTERY: Angiographically normal RIGHT CORONARY ARTERY: Angiographically normal AORTIC ROOT: Angiographically normal Physical Exam Const alert, oriented x3 and healthy appearing Orientation / Consciousness: awake HEENT normocephalic, head/scalp atraumatic and hearing grossly normal bilaterally Eyes PERRL, EOMs intact bilaterally and conjunctivae normal Neck full ROM, supple and no JVD Resp clear to auscultation bilaterally Cardio regular rate, regular rhythm, S1 normal heart sound and S2 normal heart sound GI normal to inspection, nondistended, normoactive bowel sounds Extremity no pedal edema Peripheral Pulses: Yes radial pulses present right (No obvious bruit: No obvious hematoma) 2+ Skin no rashes or lesions noted Psych mental status grossly normal Assessment & Plan Assessment/Plan (1) Atherosclerotic heart disease of [place] coronary artery without angina pectoris: PLAN: The patient has been diagnosed with underlying CAD. He will need continued risk factor modification medical therapy. (2) Presence of stent in coronary artery: PLAN: The patient has undergone LAD PCI. He will be monitored overnight. If he remains symptomatically and hemodynamically stable hopefully he will be released home for continued outpatient cardiovascular follow-up and outpatient cardiac rehabilitation tomorrow. Addt'l Comments The patient's case was discussed and reviewed with the patient, his spouse, and Dr. Dior of Interventional Cardiology. This note was generated using a voice recognition system and there may be incorrect words, spelling or punctuation that were not noted when reviewing the office note prior to saving.
[2021-10-15] MEDS: Lisinopril 2.5 MG Tablet PO (21:39)
[2021-10-15] MEDS: TICAGRELOR 90 MG TABLET PO (21:39)
[2021-10-15] MEDS: Atorvastatin Calcium 40 MG Tablet PO (21:40)
[2021-10-16 03:00] VITALS: PULSE 61
[2021-10-16 03:11] VITALS: BP 112/85; PULSE 65; RESP 18; TEMP 36.5; O2SAT 93
--- NOTE | 2021-10-16 05:55 | EKG12_ITS ---
Test Reason : AM EKG Blood Pressure : / mmHG Vent. Rate : 062 BPM Atrial Rate : 062 BPM P-R Int : 182 ms QRS Dur : 146 ms QT Int : 446 ms P-R-T Axes : 054 -62 -42 degrees QTc Int : 452 ms Sinus rhythm with Premature atrial complexes Right bundle branch block Left anterior fascicular block Bifascicular block Abnormal ECG Confirmed by MARIA ALEJANDRA CISNEROS, OLAF ([id number]), script editor DREW SAHNI ([id number]) on 10/17/2021 8:27:38 AM Referred By: Olaf Bess Confirmed By:OLAF BESS MD
[2021-10-16 06:13] LABS: Absolute Lymphocyte Count 1.18 X10^3/uL (0.83-4.51); Absolute Neutrophil Count 5.1 X10^3/uL (2.0-7.7); Basophil# 0.07 X10^3/uL; Eosinophil# 0.21 X10^3/uL; Eosinophils% 2.9 % (0-5); Hematocrit 45.5 % (40-54); Hemoglobin 16.3 g/dL (13.0-16.5); Lymphocyte # 1.18 X10^3/ul (0.83-4.51); Lymphocyte % 16.2 % (19-41); Mean Corp Hgb Conc 35.8 g/dL (32-36); Mean Corpuscular Hgb 33.1 pg (27.0-32.0); Mean Corpuscular Volume 92.5 fL (80-94); Mean Platelet Vol. 8.9 fl (6.2-12.0); Monocyte% 9.6 % (0-10); NRBC Flagged by Analyzer 0 % (0-5); Neutrophil # 5.13 X10^3/uL (2.7-7.7); Neutrophil % 70.2 % (47-70); Platelet Count 297 K/mm3 (150-450); RBC Distribution Width CV 12.8 % (11.6-14.6); RBC Distribution Width SD 43.5 fl (35.1-43.9); Red Blood Count 4.92 M/mm3 (4.6-6.2); White Blood Count 7.3 K/mm3 (4.4-11.0)
[2021-10-16 06:48] LABS: ALB/GLOB Ratio 0.9 RATIO (0.9-2.4); AST(SGOT) 12 U/L (15-37); Alanine Aminotransfer ALT/SGPT 25 U/L (16-61); Albumin, Serum 3.1 g/dL (3.2-5.0); Alkaline Phosphatase 81 U/L (45-117); Anion Gap 2 (5-15); BUN 15 mg/dL (7-18); BUN/Creat Ratio 13.9 RATIO (10-20); Calcium,Total 8.9 mg/dL (8.5-10.1); Chloride 112 mmol/L (98-107); Creatinine, Serum 1.08 mg/dL (0.70-1.30); EST Glomerular Filtration Rate 73 mL/min (>60); Est Glom Filt Rate - Afr Amer 88 mL/min (>60); Estimated Creatinine Clearance 69.47 ml/min; Globulin 3.4 g/dL (2.2-4.2); Glucose 98 mg/dL (74-106); Potassium 4.6 mmol/L (3.5-5.1); Protein, Total 6.5 g/dL (6.4-8.2); Sodium Level 140 mmol/L (136-145)
[2021-10-16 07:13] VITALS: PULSE 64
--- NOTE | 2021-10-16 07:32 | PCM.DC ---
Discharge Instructions Diet Discharge Diet: Low fat / Low cholesterol Activity Discharge Activity: May Not Drive (x 48 hours), May Shower (Today) and May Take a Tub Bath (in 7 days) May resume sexual activity in: 10-14 days Weight Bearing Status: - (Avoid heavy exertional activity x 1 week then advance activity as tolerated) Dressing / Incision Call your doctor if your incision/area has: Continuous Slow Oozing, Sudden Increased Bleeding, Increased Pain/ Swelling, Increased Redness, Foul Smelling Discharge and Swelling at the incision site Call your doctor if you observe: Fever of 101 or Higher, Shortness of breath, Fainting spells, Swelling in the ankles, Chest pain and Increased palpitations (irregular heartbeat) Remove Dressing in: 1 day Cleanse incision/area with: Soap & Water Follow Up Care Please Follow Up With: Olaf Sin MD When: [facility] to arrange an outpatient follow up appointment Test Results: Test results from this visit will be discussed in further detail at your follow-up appointment, if applicable. Discharge Plan Admission Admit Date/Time: 10/15/21 10:17 Primary Reason for Your Visit: Cardiac Catheterization Attending Provider: Olaf Sin Primary Care Provider: Yashira Hughes NP Discharge Orders/Prescriptions Prescriptions: New atorvastatin 40 mg Tablet 40 mg PO QHS Qty: 30 RF: 11 carvedilol 3.125 mg Tablet 3.125 mg PO BID Qty: 60 RF: 11 nitroglycerin 0.4 mg Tablet, Sublingual 0.4 mg sublingual Q5M PRN (Reason: Cardiac/Chest Pain) Qty: 90 RF: 6 lisinopril 2.5 mg Tablet 2.5 mg PO BID Qty: 60 RF: 11 Brilinta 90 mg Tablet 90 mg PO BID Qty: 60 RF: 11 Continued aspirin [Adult Low Dose Aspirin] 81 mg tablet,delayed release (DR/EC) 81 mg PO DAILY RF: 0 Discontinued atorvastatin 20 MG tablet 20 mg PO QHS RF: 0 Referrals / Follow Up: Yashira Hughes NP, STRINGED INSTRUMENT REPAIRER-C [Primary Care Provider] - Olaf Sin MD [STAFF PHYSICIAN] -
--- NOTE | 2021-10-16 07:42 | DS.PCM_ITS ---
Providers Date of Admission: 10/15/21 Date of Discharge: 10/16/21 Primary Care Physician: JUNIE De La Paz Reason For Visit: ABNORMAL STRESS TEST, RBBB, ABNORMAL EKG Diagnosis Discharge Diagnosis (1) Atherosclerotic heart disease of [place] coronary artery without angina pectoris: Status: Acute Code(s): I25.10 - Atherosclerotic heart disease of [place] coronary artery without angina pectoris (2) Presence of stent in coronary artery: Status: Acute Code(s): Z95.5 - Presence of coronary angioplasty implant and graft Medications at Discharge Home Medications aspirin 81 mg tablet,delayed release 81 mg PO DAILY 08/15/21 atorvastatin 40 mg PO QHS #30 tab 10/16/21 carvedilol 3.125 mg PO BID #60 tab 10/16/21 lisinopril 2.5 mg PO BID #60 tab 10/16/21 nitroglycerin 0.4 mg SUBLINGUAL Q5M PRN #90 tab 10/16/21 ticagrelor [Brilinta] 90 mg PO BID #60 tab 10/16/21 Hospital Course Procedures Cardiac catheterization and - (Cardiac Intervention: PTCA/STENT) Summary of Care Provided Minutes Spent on Discharge: 45 Hospital Course: The patient [facility] based upon concerns of abnormal noninvasive cardiovascular studies for further evaluation with diagnostic cardiac catheterization. The patient underwent diagnostic cardiac catheterization and was found to have angiographically significant appearing proximal LAD disease. The patient subsequently underwent LAD PTCA/DENNIS. The patient was monitored overnight. He remains symptomatically and hemodynamically stable. On this day he was felt stable for release home for continued outpatient cardiovascular follow-up and outpatient cardiac rehabilitation therapy. Physical Exam Const alert, oriented x3 and healthy appearing Orientation / Consciousness: awake HEENT normocephalic, head/scalp atraumatic and hearing grossly normal bilaterally Eyes PERRL, EOMs intact bilaterally and conjunctivae normal Neck full ROM, supple and no JVD Resp clear to auscultation bilaterally Cardio regular rate, regular rhythm, S1 normal heart sound and S2 normal heart sound GI normal to inspection, nondistended, normoactive bowel sounds Extremity no pedal edema Peripheral Pulses: Yes radial pulses present right (No bruits: No hematoma) 2+ Skin no rashes or lesions noted Psych mental status grossly normal Weight / BMI Weight Weight: 221 lb 12.56 oz Body Mass Index (BMI) 32.5 ABG / Lab / Microbiology Data Result Diagrams: 10/16/21 05:40 10/16/21 05:40 Laboratory: Laboratory Results - last 24 hr 10/16/21 05:40: WBC 7.3, RBC 4.92, Hgb 16.3, Hct 45.5, MCV 92.5, MCH 33.1 H, MCHC 35.8, RDW Std Deviation 43.5, RDW Coeff of [place] 12.8, Plt Count 297, MPV 8.9, Immature Gran % (Auto) 0.100, Neut % (Auto) 70.2 H, Lymph % (Auto) 16.2 L, [place] % (Auto) 9.6, Eos % (Auto) 2.9, Baso % (Auto) 1.0, Absolute Neuts (auto) 5.1, Absolute Lymphs (auto) 1.18, Nucleated RBC % 0 10/16/21 05:40: Sodium 140, Potassium 4.6, Chloride 112 H, Carbon Dioxide 26.0, Anion Gap 2 L, BUN 15, Creatinine 1.08, Estim Creat Clear Calc 69.47, Est GFR (MDRD) Af Amer 88, Est GFR (MDRD) Non-Af 73, BUN/Creatinine Ratio 13.9, Glucose 98, Calcium 8.9, Total Bilirubin 0.90, AST 12 L, ALT 25, Alkaline Phosphatase 81, Total Protein 6.5, Albumin 3.1 L, Globulin 3.4, Albumin/Globulin Ratio 0.9 D/C Instructions Discharge Diet: Low fat / Low cholesterol May resume sexual activity in: 10-14 days Weight Bearing Status: - (Avoid heavy exertional activity x 1 week then advance activity as tolerated) Call your doctor if your incision/area has: Continuous Slow Oozing, Sudden Increased Bleeding, Increased Pain/ Swelling, Increased Redness, Foul Smelling Discharge and Swelling at the incision site Call your doctor if you observe: Fever of 101 or Higher, Shortness of breath, Fainting spells, Swelling in the ankles, Chest pain and Increased palpitations (irregular heartbeat) Cleanse incision/area with: Soap & Water Please Follow Up With: Olaf Sin MD When: [facility] to arrange an outpatient follow up appointment Meaningful Use Info Meaningful Use Diagnoses (Choose all that apply): None applicable Discharge Plan Admission Admit Date/Time: 10/15/21 10:17 Primary Reason for Your Visit: Cardiac Catheterization Attending Provider: Olaf Sin Primary Care Provider: Yashira Hughes NP Discharge Orders/Prescriptions Prescriptions: New atorvastatin 40 mg Tablet 40 mg PO QHS Qty: 30 RF: 11 carvedilol 3.125 mg Tablet 3.125 mg PO BID Qty: 60 RF: 11 nitroglycerin 0.4 mg Tablet, Sublingual 0.4 mg sublingual Q5M PRN (Reason: Cardiac/Chest Pain) Qty: 90 RF: 6 lisinopril 2.5 mg Tablet 2.5 mg PO BID Qty: 60 RF: 11 Brilinta 90 mg Tablet 90 mg PO BID Qty: 60 RF: 11 Continued aspirin [Adult Low Dose Aspirin] 81 mg tablet,delayed release (DR/EC) 81 mg PO DAILY RF: 0 Discontinued atorvastatin 20 MG tablet 20 mg PO QHS RF: 0 Referrals / Follow Up: Olaf Sin MD [STAFF PHYSICIAN] - Yashira Hughes NP, RECYCLE WORKER-C [Primary Care Provider] -
[2021-10-16 07:47] VITALS: BP 117/81; PULSE 64; RESP 16; TEMP 36.7; O2SAT 96
[2021-10-16] MEDS: Lisinopril 2.5 MG Tablet PO (08:30)
[2021-10-16] MEDS: Aspirin 81 MG TAB.CHEW PO (08:31)
[2021-10-16] MEDS: TICAGRELOR 90 MG TABLET PO (08:31)
[2021-10-16] MEDS: Carvedilol 3.125 MG TABLET PO (08:31)
--- NOTE | 2021-10-16 09:07 | CASEMGMT ---
Pt to be sent home on Brilinta at d/c and med e-scribed to [facility] previously. Call to [facility] to check coverage/co-pay and per tech, pt's co-pay is $43.50. Pt updated and provided with Brilinta one month free coupon card with instructions at this time. Pt aware to f/u with cardiology office for any further concerns with Brilinta cost, voices understanding. Pt voices no further questions/concerns/needs. Maria De Jesus NESS CM
[2021-10-16 09:11] VITALS: BP 122/84; PULSE 67; RESP 18; TEMP 36.7; O2SAT 97
== END 2021-10-16 07:46 ==
LOC: PCU 10:52
PROVIDERS: Admitting Provider Internal Medicine Cardiovascular Disease; PCP Registered Nurse; Referring Provider Internal Medicine Cardiovascular Disease; Visit Provider Internal Medicine Cardiovascular Disease
DX: R94.31 Abnormal electrocardiogram [ECG] [EKG] (principal); C61 Malignant neoplasm of prostate; I25.10 Atherosclerotic heart disease of native coronary artery without angina pectoris; I45.2 Bifascicular block; R94.39 Abnormal result of other cardiovascular function study; F17.200 Nicotine dependence, unspecified, uncomplicated; Z92.3 Personal history of irradiation; I49.3 Ventricular premature depolarization; R53.83 Other fatigue; Z79.899 Other long term (current) drug therapy; Z79.82 Long term (current) use of aspirin; R93.1 Abnormal findings on diagnostic imaging of heart and coronary circulation
CPT/HCPCS: 36415; 71046; 80048; 80053; 85025; 85027; 85610; 85730; 92928; 93005; 93458; 96360; 96361; 99152; 99153; 99218; C1874; J7030; J7040; Q9967; C1725; C1769; C1887; C1894; C9600; G0378

== ENCOUNTER 2021-10-29 08:54 | Outpatient (CLI) | payer MEDICARE, SELFPAY ==
--- NOTE | 2021-10-29 08:59 | PCM.CR.ITP ---
Diagnosis - General Information Admitting Diagnosis: PCI w/coronary stent placement Secondary Diagnosis: Abnormal stress test, RBBB, Abnormal cardiac CT angiography, Abnormal EKG Personal Learning Style:: Audio/Visual, Written Barriers to Learning: Vision Impairment Stage of change r/t lifestyle modifications:: Action Gave educational material for:: Treating Heart Disease, Emotions & Heart Disease, Stress Management & Relaxation, Sleep Disorders & Heart Disease, How The Heart Works, What it means to have Heart Disease, How Coronary Artery Disease is Diagnosed, Heart Procedures, What Heart Medications Do, Risk Factors & Modifications, Living an Active Life, Nutrition - Education/Goals Individual Counseling: Initial Assessment: Nicotine/Smoking, Abnormal Cholesterol Levels, High Blood Pressure, Overweight/Obesity Cardiac Rehabilitation Goals: 1. Maintain the individual as the primary focus of care. 2. To improve the patient's quality of life. 3. Identification of cardiac risk factors and provide cardiac risk factor management. 4. Enhance the psychosocial status of the patient. 5. Reconditioning enough to allow the patient to resume customary activities. 6. Control symptoms of cardiac disease Personal Goals: Initial Assessment: Quit smoking (participate in smoking cessation, Participate in home exercise program, Improve knowledge of cardiac disease, Improve muscle strength and endurance, Improve diet and eating habits (eat healthier), Control risk factors (learn risk factor modification) Scale for measuring improvement of personal goals: Enter appropriate number in Comments. 2 = Unchanged. 3 = Slightly Better. 4 = Moderate Improvement. 5 = Met my Goal - Diagnosis & Disease Process Outcomes/Goals: Pt IDs own risk factors & lifestyle modifications by Session 10, Verbalizes symptoms of angina & response by session 3., Pt independently manages Plan/Interventions: Assist Pt to ID & engage in lifestyle modification to reduce CVD risk, Instruct on individual risk factors, Review symptoms of angina & emergency actions, Review secondary diagnosis & identify educational needs. - Safety Referral to Physical Therapy: No Referral to [facility] Case Management: No Fall Risk Assessed:: Yes Assistive Devices:: None Exercise - Initial Assessment - Visit Date of Eval: 10/29/21 Session #:: 0 - pre-cardiac rehab evaluation Mets: Pre-: >7 METS for 30 minutes by discharge - Stress Test Date: 10/15/21 Protocol:: Jomar Maximum HR (bpm):: 155 Maximum Blood Pressure: 162/104 - Physician Prescribed Exercise Modalities: Treadmill, Rower, Airdyne Frequency: 3x/week for 12 weeks [36 sessions] Intensity: 60-80% of age predicted maximum heart rate reserve Current METSs:: 3.0 Target Heart Rate:: 100-130 Maximum Excercise HR:: 155 Resting Blood Pressure: 129/92 Maximum Exercise Blood Pressure: 162/104 - Outcomes & Goals Goals:: Verbalizes understanding of THR, RPE & goal METS by session 6, Documents in home exercise log/reports 30 min aerobic 5 day/wk by DC, Demonstrates accurate pulse taking by DC - Intervention & Plan Exercise Program Goals: Instruct on personal THR & RPE, Instruct on MET level & personal MET goal, Show patient to take own pulse /validate performance until accurate, Instruct on home exercise - Physical Activity Home Exercise Physical Activity - Home Exercise: Safe Exercise, Warm-up, Self-monitoring, Cool-Down, Home Exercise > 30 min Daily, Sitting Time <3 hours/daily - Outcomes & Goals Outcomes/Goals: Demonstrates correct Warm-up/exercise Cool-Down (S3) if = 2.5 METs, Verbalizes symptoms of exercise intolerance by Session 3 (S3), Demonstrate safe equipment use (S3) & follows exercise prescrition (6) - Intervention & Plan Plan/Intervention: Instruct warm-up & cool-down if exercising at > 2 METs, Instruct on symptoms of exercise intolerance & actions to take, Instruct & monitor on saf, Assess intial functional capacity & safety risk Nutrition - Initial Assessment - Program Goals Nutrition Program Goals: LDL <100 optimal. 100 - 129 Near optimal. 130 - 159 Borderline High. 160 - 189 High. Total Cholesterol <200 desirable. 200 - 239 Borderline High. >/= 240 High. HDL < 40 Low >/=60 High. Triglycerides <150 desirable. <199 optimal. VlDL 5 - 40. HgbA1C <7%. BMI <25 Patient has diagnosis of Hyperlipidemia (ICD E78)?: Yes - Visit Date of Assessment:: 10/29/21 Session #:: 0 - pre-cardiac rehab evaluation - Cholesterol/Lipids Triglycerides (mg/dL): 123 Total Cholesterol (mg/dL): 123 LDL Cholesterol (mg/dL): 54 HDL Cholesterol (mg/dL): 44 Determine presence & major risk factors that modify LDL goal: Cigarette smoking, Hypertension or hypertensive medication, Age men > 45 years; women >/= 55 years Outcomes/Goals: Pt IDs own risk factors & lifestyle modifications by Session 10, Verbalizes symptoms of angina & response by session 3., Pt independently manages Intervention/Plan: Instruct on personal lipid levels & lipid goals/NCEP guidelines, Instruct on cholesterol Referral to dietitian:: Yes - Medical Nutrition Therapy - Diabetes (Other Core Measures) Diabetes Type: Not Applicable - Weight Mgt (Other Care) Not Applicable: No Height: 5 ft 10 in Weight:: 227 lb BMI: 32.5 Diagnosis Overweight/Obesity BMI> 30% ICD-10 E66: Yes Diagnosis High BMI/Morbid Obesity BMI> 35% ICD-10 Z68: No Outcomes/Goals: Pt sets, maintains & shows weight loss goal & trend during rehab Intervention/Plan: Instruct on ideal BMI & set weight loss goal w/patient, Assist pt to ID & incorporate diet changes for weight loss by S9, Refer to Structured Weight Loss program as appropriate, Encourage goal of using 250-300dcal per session for weight loss - Healthy Eating Habits Will attend diet classes:: Yes Outcomes/Goals:: Consume diet rich in vegs,fruits,whole grain/high fiber,fish,lean meat, Limit sat/trans fats,cholesterol & added salts & sugars Intervention/Plan:: Assess current eating habits - Education Gave educational materials for:: Healthy eating Nutrition - 30-Day Assessment Nutrition - 60-Day Assessment Nutrition - 90-Day Assessment Nutrition - Final Assessment Medical - Initial Assessment - Visit Date of Eval: 10/29/21 Session #:: 0 - pre-cardiac rehab evaluation - Medication Compliance Preventative Medication(s):: Aspirin, Ticagrelor/P2Y12 inhibitor, Statin/lipid, Beta boby H/O mental health issues: depression, anxiety, or addiction?: No Doesn?t believe in the benefits of treatment?: No Believes medications are unnecessary or harmful?: No Has a concern about medication side effects?: No Expresses concern over the cost of medications?: No Outcomes/Goals: Verbalizes medications,desired effect & common side effects @ DC, Pt self-reports following medication regimen, Keeps card in wallet w/medications listed by DC Interventions/plans: Instruct on medication effects & side effects, Review medication list w/patient every two weeks, Instruct importance of taking meds as ordered & assist problem solving - Tobacco Use Tobacco Use: Cigarettes How many cigarettes do you smoke per day?: 10 - < 10 Do you use smokeless tobacco?: No Outcomes/Goals: Smoking cessation achieved or maintained by discharge, Identify aids/strategies for achieving smoking cessation by session 6 Interventions/plan: Instruct on effects of smoking & provide smoking cessation resource, Assist pt to set quit date & provide encouragement, Assist pt to develop strategies to achieve/maintain quit date, Assist pt w/nicotine replacement & medication for cessation success - Hypertension Hypertension Diagnosis:: Hypertension ICD-10 I10 Resting Blood Pressure:: 129/92 [place] [employer] Hypertension Guidelines: [place] [employer] Hypertension Guidelines. Normal BP Less than 120/80. Elevated BP 120/80. Hypertension Stage 1: BP 130-139/80-89. Hypertesnion Stage 2: BP 140 or higher/90 or higher. Hypertension Crisis: BP higher than 180/120 Peak Exercise Blood Pressure:: 162/104 Outcomes/Goals: Able to verbalize/achieve optimal blood pressure <130/80, Incorporates diet changes & exercise for blood pressure control by DC Interventions/plan: Instruct on optimal blood pressure, hypertension & medications, Instruct on effects of sodium, alcohol, stress, exercise &hypertension - Tobacco Cessation Referral Smoking Cessation Referral:: No Individual Education/Counseling:: No Education Schedule Given:: Yes Medical- 30-Day Assessment Medical- 60-Day Assessment Medical- 90-Day Assessment Medical - Final Assessment Psychosocial - Initial Assess - VIsit Date of Eval: 10/29/21 Session #:: 0 - pre-cardiac rehab evaluation Not Applicable: Yes History of previous Mental disease:: No - Psychosocial Test Tool Used:: [employer] QOL Cardiac, PHQ-9 Questionnaire phq-9 Severity: Severity. 1-4 Minimal Depression. 5-9 Mild Depression. 10-14 Moderate Depression. 15-19 Moderately Sever Depression. 20-27 Severe Depression. Rule: - Referral to Behavioral Health PS - Interventions: Yes Attend Stress Management Classes, No Referral to Behavioral Health if PHQ-9 score >9:, No Referral to [facility], No Referral to Physician if PHQ-9 if score is 5-9: - Outcomes/Goals: See list Psychosocial Outcomes/Goals:: ID's personal stressors & 2 strategies to manage stress by discharge - Intervention/Plan: See List Interventions/Plan:: Assess stressors,coping strategies & signs of derpression on admission, Instruct/assist pt to develop coping & personal stress Mgt strategies, Instruct patient to recognize signs & symptoms of depression, Instruct patient to recog Psychosocial - 30-Day Assess Psychosocial - 60-Day Assess Psychosocial - 90-Day Assess Psychosocial - Final Assessmen Patient Health Questionnaire Initial Assessment 1. Little interest or pleasure in doing things: Not at all 2. Feeling down, depressed, or hopeless: Not at all 3. Trouble falling or staying asleep, or sleeping too much: Not at all 4. Feeling tired or having little energy: Not at all 5. Poor appetite or overeating: Not at all 6. Feeling bad about yourself -- or that you are a failure or have let yourself or your family down: Not at all 7. Trouble concentrating on things, such as reading the newspaper or watching television: Not at all 8. Moving or speaking so slowly that other people could have noticed. Or the opposite - being so fidgety or restless that you have been moving around a lot more than usual: Not at all 9. Thoughts that you would be better off , or of hurting yourself in some way: Not at all How difficult have these problems made it for you to do your work, take care of things at home, or get along with other people?: Not difficult at all Total Score: 0 TEMITOPE-Q SV Test - Statements CAD is a disease of the arteries in the heart: True Examples of risk factors for heart disease: True Angina is chest pain or discomfort: I Don't Know The benefits of resistance training include: True Eating more meat and dairy products: I Don't Know Anti-platelet medications such as aspirin are important: I Don't Know The only effective way to manage stress: True An exercise warm-up slowly increases heart rate: I Don't Know Prepared, processed foods usually have high sodium: I Don't Know Depression is common after a heart attack: True The statin medications lower cholesterol: True To control blood pressure, lower the amount of sodium: I Don't Know If someone gets chest discomfort during walking: False Transfats are partially hydrogenated vegetable oils: I Don't Know Sleep apnea that is not treated increases the risk: I Don't Know To control cholesterol, one should become a vegetarian: I Don't Know Someone knows if he/she is exercising at the right level: I Don't Know Diabetes cannot be prevented with exercise & health eating: True Stress is a large risk for heart attack: True A diet that can help lower blood pressure is rich in: True - Total Score Total Correct Responses: 7 Self-Efficacy Initial Assessment We would like to know how confident you are in doing certain activities. Please select your confidence level for:: Select your confidence level for the following using the scale 1-10 where 1 is not at all confident and 10 is totally confident. Your score is the average of all 6 responses. Fatigue: How confident are you that you can keep the fatigue caused by your disease from interfering with the things you want to do? Select Number: 9 Physical Discomfort or Pain: How confident are you that you can keep the physical discomfort or pain of your disease from interfering with the things you want to do? Select Number: 9 Emotional Distress: How confident are you that you can keep the emotional distress caused by your disease from interfering with the things you want to do? Select Number: 9 Other Symptoms or Health Problems: How confident are you that you can keep other symptoms or health problems from interfering with the things you want to do? Select Number: 9 Different Tasks and Activities: How confident are you that you can do the different tasks and activities needed to manage your health condition so as to reduce your need to see a doctor? Select Number: 10 Medication: How confident are you that you can do things other than just taking medication to reduce how much your illness affects your everyday life? Select Number: 9 Total Score:: 9 Nutrition Survey - Nutrition Survey Initial Have you lost >10 lbs over the past 2 months without trying?: No Are you following a special diet at home for diabetes, low fat, or low salt?: No Are you interested in meeting with a dietitian for help understanding your diet?: No Do you eat less than 3 meals a day?: No Do you eat fatty meats (giraldo, sausage, ribs, etc), fried foods, desserts, large amounts of salad dressings, margarine, butter, or cheese most days?: No Do you have food allergies? [Enter types in comment field]: No Do you eat in restaurants more than 3 times a week?: No Do you season food with salt, seasoning salt, or garlic salt?: Yes Do you used canned, boxed, frozen meals, or soups, seasoning packets?: No Total Score:: 1
--- NOTE | 2021-10-29 09:00 | CR.HP_ITS ---
CR - History & Physical - General Arrival date:: 10/29/21 Arrival time:: 09:00 Date of Referral:: 10/15/21 Date of CR Evaluation:: 10/29/21 Referring Physician: DR. AL BESS Primary Diagnosis: PCI W/STENTING - History of Present Cardiac Event Onset Date: Enter Onset Date of cardiac illnesses in Comment field below PTCA or coronary stenting:: Yes - 10/15/2021 Type of Symptoms:: ABNORMAL STRESS TEST, RBBB, ABNORMAL EKG taken then to the orthodontic laboratory technician for heart cath. - Sleep Disorder Evaluation Hx of Sleep Apnea: No Do you snore loudly (louder than talking or can be heard through closed doors)?: Yes Do you often feel tired/ fatigued/ sleepy during daytime?: No - frequently wawkend at night, but wish could sleep better. Has anyone observed you stop breathing during sleep?: No History of Hypertension (for STOP score): No STOP Results: Negative - Medications Home Medications: Ambulatory Orders Medication Instructions Recorded aspirin 81 mg tablet,delayed 81 mg PO DAILY 08/15/21 release atorvastatin 40 mg tablet 40 mg PO QHS #90 tab 10/16/21 carvedilol 3.125 mg tablet 3.125 mg PO BID #180 tab 10/16/21 lisinopril 2.5 mg tablet 2.5 mg PO BID #180 tab 10/16/21 nitroglycerin 0.4 mg SUBLINGUAL Q5M PRN #90 tab 10/16/21 ticagrelor [Brilinta] 90 mg PO BID #60 tab 10/16/21 - Allergies Allergies/Adverse Reactions: Allergies No Known Allergies Allergy (Verified 10/14/21 07:57) Advanced Directives - Advanced Directives Power of Life Enrichment Specialist: No Living Will: No Advance Directives Information Provided: Yes Advance Directives on File: No DNR Order?:: No Past Medical History - Covid-19 Screening Fever: No Unexplained muscle aches: No Current respiratory symptoms: No Upper respiratory infections symptoms: No Gastro-intestinal symptoms: No Wgt-[id number]-Jpbhau symptoms: No Has tested positive for COVID-19 in last 30 days: No Date of testin11/09/20 - Had both vaccines and the booster @ [facility] Had contact w/person w/symptoms or Covid-19 (+) last 14 days: No Has High Risk Exposures ID'd by Health dept/Inf Control team: No 65 years or older:: Yes Lives in Assisted Living facility:: No Has a chronic lung disease or moderate to severe asthma:: No Has a serious heart condition:: Yes Immunocompromised:: No Severely obese (Body Mass Index of 40 or higher):: No Diabetic:: No Has chronic kidney disease undergoing dialysis:: No Has liver disease:: No - Past Medical Illness Medical History: Past Medical History (Last Updated 10/15/21 @ 11:03 by Marlys Gil) Abnormal cardiac CT angiography R93.1 Abnormal stress test R94.39 Atherosclerotic heart disease of [place] coronary artery without angina pectoris I25.10 Prostate cancer C61 RBBB (right bundle branch block) I45.10 - Past Surgical History Surgical History: Past Surgical History (Last Updated 10/15/21 @ 11:03 by Marlys Gil) History of arthroscopy of left knee Z98.890 History of total knee replacement (TKR) Z96.659 LT Presence of stent in coronary artery Onset Date: ~10/15/21 Z95.5 Successful PCI of the ostial/proximal LAD, 75% stenosis calcified, predilated using 2.5 x 12 mm Emerge balloon Followed by placement of drug-eluting stent 3.5 x 18 mm DENNIS/[employer] [place], postdilated with 3.5 x 12 mm NC balloon With reduction of stenosis to 0%, pre and post procedure SB-3 flow.per cardiac cath 10/15/21 Surgical History: no surgical history - Family History Summary Family History: Family History (Last Reviewed 10/10/21 @ 15:47 by Marlys Gil) Brother Diabetes Mother CVA (cerebral vascular accident) Hypertension Social History - Smoking History Smoking Status: Light Smoker (<10/day) Years Smokin - 1-cigar daily, since Oct 15 has not had one! Hx Smoking Cessation Date: 01/22/22 Hx Tobacco Use: Yes Hx Smoking Exposure: Yes - Alcohol Use Alcohol Usage: Yes - moderate - Substance Abuse Hx Substance Use: No - Occupation Occupation (List type of work in comments):: Retired - Hobbies, Recreation, Social Activities Hobbies: Woodworking - not a professional but do fool around with it a little., Other - Grandkid, outside work, gardening, landscaping, love being outside. Recreational Activities: I am able to engage in most, but not all activities Social Environment - Status Marital Status: - Current Living Arrangements Living Environment:: Spouse - Children How many children do you have?: 3 Do any of your children live nearby?: Yes - Safety Do you feel safe in your surroundings?: Yes - Assistance Do you need any assistance at home?: no Review of Systems - Review of Systems Hints: Right click = Denies ([place]). Left click = Reports ([place]) Review of Present Symptoms: Reports: Shortness of Breath with Exertion - bending over washing the lower part of the car and felt as if I needed to stand up., Appetite - Normal - too normal, Sleep - Normal. Denies: Shortness of Breath at Rest, Angina, Dizziness/Lightheadedness, Fatigue, Heart Arrhythmia/Irregularities, Appetite - Special Diet, Sexual Changes - Pain Is Patient Pain Free?: Yes Pain Location: none Pain Level: 0/10 Risk Factor Assessment - Chief Complaint Chief Complaint: Lupis is a 66yr old male patient of Dr. Bess who presents to cardiac rehab today following recent PCI with stent placement. The patient reports he was in for routine work up and during his stress test some obnormality occured and Dr. Bess had him taken to the orthodontic laboratory technician where he had a stent placed. - Vital Signs Temperature: 98.2 F Respiratory Rate: 14 Pulse Ox: 98 Blood Pressure: 129/92 - Pulse Pulse Rate: 64 Pulse Rhythm: Regular - Hypertension How long have you been treated?: no previous history of HTN Blood Pressure Sitting - Left Arm: 129/92 - Blood Cholesterol/Lipids Total Cholesterol (mg/dL) Goal = less than 200 mg/dL: 123 - 07/15/2021 HDL Cholesterol (mg/dL) Goal = less than 40 mg/dL: 44 LDL Cholesterol (mg/dL) Goal = less than 70 mg/dL: 54 Triglycerides (mg/dL) Goal = less than 150 mg/dL: 123 - Obesity Height: 5 ft 10 in Weight:: 227 lb Weight in Pounds: 227.0 lbs Weight Source: Stated by Patient Body Mass Index (BMI): 32.5 - Physical Inactivity Physical Inactivity: Reg Exercise 30 min/day - Risk Stratification Risk Guidelines: Lowest Risk: Risk Factor for Diabetes, Risk Factor for Hypertension - 129/92, Risk Factor for Sedentary Lifestyle, Risk Factor for Depression, Moderate Risk: Risk Factor for Smoking, Risk Factor for Dyslipidemia, Highest Risk: Risk Factor for Obesity - 32.5 - Family History Family History: Family History (Last Reviewed 10/10/21 @ 15:47 by Marlys Gil) Brother Diabetes Mother CVA (cerebral vascular accident) Hypertension Motivation - Motivation to Participate On a scale of 1 to 10, how prepared are you to commit to attending program?: 10 - doing treadmill at home 1.5 mph What do you see as barriers to successfully being able to complete the program?: none What do you see as the benefits of succesfully completing the program? In other words, what do you hope to get out of participating in the program?: healthier, diet, learn more about risk of heart disease/smoke cessation Are there issues you are dealing with that will interfere with completing the program?: none Do you have a spouse or signficant other, family or friends who will help support you to complete the program?: yes
[2021-10-29 09:27] VITALS: BP 129/92; BP 162/104; BMI 32.5
[2021-10-29 09:42] VITALS: BP 129/92; PULSE 64; RESP 14; TEMP 36.8; O2SAT 98; BMI 32.5
== END 2021-10-29 23:59 | disposition home or self-care (01) ==
LOC: CR 08:55
PROVIDERS: PCP Registered Nurse; Referring Provider Internal Medicine Cardiovascular Disease; Visit Provider Internal Medicine Cardiovascular Disease
DX: I25.10 Atherosclerotic heart disease of native coronary artery without angina pectoris (principal)

== ENCOUNTER 2021-11-20 08:00 | Outpatient (RCR) | payer MEDICARE, SELFPAY | END 2021-11-21 23:59 | disposition home or self-care (01) | LOC: CR 08:00 | PROVIDERS: PCP Registered Nurse; Referring Provider Internal Medicine Cardiovascular Disease; Visit Provider Internal Medicine Cardiovascular Disease | DX: I25.10 Atherosclerotic heart disease of native coronary artery without angina pectoris (principal); Z95.5 Presence of coronary angioplasty implant and graft | CPT/HCPCS: 93798 ==

== ENCOUNTER 2021-12-20 08:00 | Outpatient (RCR) | payer MEDICARE, SELFPAY | END 2021-12-21 23:59 | LOC: CR 08:00 | PROVIDERS: PCP Registered Nurse; Referring Provider Internal Medicine Cardiovascular Disease; Visit Provider Internal Medicine Cardiovascular Disease | DX: I25.10 Atherosclerotic heart disease of native coronary artery without angina pectoris (principal); Z95.5 Presence of coronary angioplasty implant and graft | CPT/HCPCS: 93798 ==

== ENCOUNTER → 2022-01-08 | Outpatient (CLI) | payer MEDICARE, SELFPAY ==
[2021-12-27 07:26] VITALS: BMI 31.8
[2022-01-08 09:24] LABS: Absolute Lymphocyte Count 1.16 X10^3/uL (0.83-4.51); Absolute Neutrophil Count 3.9 X10^3/uL (2.0-7.7); Basophil# 0.05 X10^3/uL; Basophil% 0.8 % (0-1); Eosinophils% 3.3 % (0-5); Hematocrit 44.3 % (40-54); Hemoglobin 15.3 g/dL (13.0-16.5); Lymphocyte # 1.16 X10^3/ul (0.83-4.51); Lymphocyte % 19.4 % (19-41); Mean Corp Hgb Conc 34.5 g/dL (32-36); Mean Corpuscular Hgb 32.2 pg (27.0-32.0); Mean Corpuscular Volume 93.3 fL (80-94); Mean Platelet Vol. 8.7 fl (6.2-12.0); Monocyte# 0.68 X10^3/uL; Monocyte% 11.4 % (0-10); NRBC Flagged by Analyzer 0 % (0-5); Neutrophil # 3.89 X10^3/uL (2.7-7.7); Neutrophil % 64.9 % (47-70); Platelet Count 318 K/mm3 (150-450); RBC Distribution Width CV 13.4 % (11.6-14.6); RBC Distribution Width SD 45.6 fl (35.1-43.9); Red Blood Count 4.75 M/mm3 (4.6-6.2)
[2022-01-08 09:55] LABS: Hemoglobin A1c 5.6 % (3.8-5.6)
[2022-01-08 09:58] LABS: AST(SGOT) 16 U/L (15-37); Alanine Aminotransfer ALT/SGPT 26 U/L (16-61); Anion Gap 3 (5-15); BUN 15 mg/dL (7-18); BUN/Creat Ratio 13.9 RATIO (10-20); Calcium,Total 8.9 mg/dL (8.5-10.1); Chloride 109 mmol/L (98-107); Cholesterol 111 mg/dL (200); Creatinine, Serum 1.08 mg/dL (0.70-1.30); EST Glomerular Filtration Rate 73 mL/min (>60); Est Glom Filt Rate - Afr Amer 88 mL/min (>60); Glucose 95 mg/dL (74-106); High Density Lipoprotein 55 mg/dL; Potassium 4.8 mmol/L (3.5-5.1); Sodium Level 139 mmol/L (136-145); Triglycerides 63 mg/dL; Very Low Density Lipoprotein 13 mg/dL (5-40)
== END | disposition home or self-care (01) ==
LOC: LAB 09:06
PROVIDERS: PCP Registered Nurse; Referring Provider Registered Nurse; Visit Provider Registered Nurse
DX: Z00.00 Encounter for general adult medical examination without abnormal findings (principal); E78.5 Hyperlipidemia, unspecified
CPT/HCPCS: 80048; 80061; 83036; 84450; 84460; 85025

== ENCOUNTER 2022-01-17 08:00 | Outpatient (RCR) | payer MEDICARE, SELFPAY ==
--- NOTE | 2021-12-27 07:20 | CR.ITP_ITS ---
Diagnosis Exercise - 60-day Assessment - Visit Date of Eval: 12/27/21 Session #:: 25 - Physician Prescribed Exercise Modalities: Treadmill, Rower, NuStep Frequency: 3x/week for 12 weeks [36 sessions] Intensity: 60-80% of age predicted maximum heart rate reserve Current METSs:: 7.5 Target Heart Rate:: 100-130 Current RPE:: 12-13 Maximum Excercise HR:: 130 Resting Blood Pressure: 100/74 Maximum Exercise Blood Pressure: 158/90 EKG Type: NSR to sinus tach w/BBB rare PVC and PAC Current Physical Activity or Exercising minutes: 38 - Outcomes & Goals Goals:: Verbalizes understanding of THR, RPE & goal METS by session 6, Documents in home exercise log/reports 30 min aerobic 5 day/wk by DC, Demonstrates accurate pulse taking by DC - Intervention & Plan Exercise Program Goals: Instruct on personal THR & RPE, Instruct on MET level & personal MET goal, Show patient to take own pulse /validate performance until accurate, Instruct on home exercise - 30-day Reassessments 30 day Reassessments:: Met - Physical Activity Home Exercise Physical Activity - Home Exercise: Safe Exercise, Warm-up, Self-monitoring, Cool-Down, Home Exercise > 30 min Daily, Sitting Time <3 hours/daily - Outcomes & Goals Outcomes/Goals: Demonstrates correct Warm-up/exercise Cool-Down (S3) if = 2.5 METs, Verbalizes symptoms of exercise intolerance by Session 3 (S3), Demonstrate safe equipment use (S3) & follows exercise prescrition (6) - Intervention & Plan Plan/Intervention: Instruct warm-up & cool-down if exercising at > 2 METs, Instruct on symptoms of exercise intolerance & actions to take, Instruct & monitor on saf, Assess intial functional capacity & safety risk - 30-day Reassessments 30 day Reassessments:: Met Nutrition - Initial Assessment Nutrition - 30-Day Assessment Nutrition - 60-Day Assessment - Program Goals Nutrition Program Goals: LDL <100 optimal. 100 - 129 Near optimal. 130 - 159 Borderline High. 160 - 189 High. Total Cholesterol <200 desirable. 200 - 239 Borderline High. >/= 240 High. HDL < 40 Low >/=60 High. Triglycerides <150 desirable. <199 optimal. VlDL 5 - 40. HgbA1C <7%. BMI <25 Patient has diagnosis of Hyperlipidemia (ICD E78)?: Yes - Visit Date of Assessment:: 12/27/21 Session #:: 25 - Cholesterol/Lipids Triglycerides (mg/dL): 123 Total Cholesterol (mg/dL): 123 LDL Cholesterol (mg/dL): 54 HDL Cholesterol (mg/dL): 44 Determine presence & major risk factors that modify LDL goal: Hypertension or hypertensive medication, Age men > 45 years; women >/= 55 years Outcomes/Goals: Pt IDs own risk factors & lifestyle modifications by Session 10, Verbalizes symptoms of angina & response by session 3. Intervention/Plan: Instruct on personal lipid levels & lipid goals/NCEP guidel edilberto, Instruct on cholesterol Referral to dietitian:: No - Medical Nutrition Therapy declined by patient 30-day Reassessments:: Progressing - Diabetes (Other Core Measures) Diabetes Type: Not Applicable - Weight Mgt (Other Care) Not Applicable: No Height: 5 ft 10 in Weight:: 222 lb BMI: 31.8 Diagnosis Overweight/Obesity BMI> 30% ICD-10 E66: Yes Diagnosis High BMI/Morbid Obesity BMI> 35% ICD-10 Z68: No Outcomes/Goals: Pt sets, maintains & shows weight loss goal & trend during rehab Intervention/Plan: Instruct on ideal BMI & set weight loss goal w/patient, Assist pt to ID & incorporate diet changes for weight loss by S9 30 day Reassessments:: Progressing - Healthy Eating Habits Will attend diet classes:: Yes Outcomes/Goals:: Consume diet rich in vegs,fruits,whole grain/high fiber,fish,lean meat, Limit sat/trans fats,cholesterol & added salts & sugars Intervention/Plan:: Assess current eating habits 30-day Reassessments:: Progressing - Education Gave educational materials for:: Healthy eating Nutrition - 90-Day Assessment Nutrition - Final Assessment Medical - Initial Assessment Medical- 30-Day Assessment Medical- 60-Day Assessment - Visit Date of Eval: 12/27/21 Session #:: 25 - Medication Compliance Preventative Medication(s):: Aspirin, Ticagrelor/P2Y12 inhibitor, Statin/lipid, Beta boby H/O mental health issues: depression, anxiety, or addiction?: No Doesn?t believe in the benefits of treatment?: No Believes medications are unnecessary or harmful?: No Has a concern about medication side effects?: No Expresses concern over the cost of medications?: No Outcomes/Goals: Verbalizes medications,desired effect & common side effects @ DC, Pt self-reports following medication regimen, Keeps card in wallet w/m edications listed by DC Interventions/plans: Instruct on medication effects & side effects, Review medication list w/patient every two weeks, Instruct importance of taking meds as ordered & assist problem solving 30-day Reassessments:: Progressing - Tobacco Use Tobacco Use: Non-smoker - Hypertension Hypertension Diagnosis:: Hypertension ICD-10 I10 Resting Blood Pressure:: 100/74 [place] [employer] Hypertension Guidelines: [place] [employer] Hypertension Guidelines. Normal BP Less than 120/80. Elevated BP 120/80. Hypertension Stage 1: BP 130-139/80-89. Hypertesnion Stage 2: BP 140 or higher/90 or higher. Hypertension Crisis: BP higher than 180/120 Peak Exercise Blood Pressure:: 158/90 Outcomes/Goals: Able to verbalize/achieve optimal blood pressure <130/80, Incorporates diet changes & exercise for blood pressure control by DC Interventions/plan: Instruct on optimal blood pressure, hypertension & medications, Instruct on effects of sodium, alcohol, stress, exercise &hypertension 30 day Reassessments:: Met - Tobacco Cessation Referral Smoking Cessation Referral:: No Individual Education/Counseling:: No Education Schedule Given:: Yes Medical- 90-Day Assessment Medical - Final Assessment Psychosocial - Initial Assess Psychosocial - 30-Day Assess Psychosocial - 60-Day Assess - VIsit Date of Eval: 12/27/21 Session #:: 25 Not Applicable: Yes History of previous Mental disease:: No - Psychosocial Test Tool Used:: PHQ-9 Questionnaire phq-9 Severity: Severity. 1-4 Minimal Depression. 5-9 Mild Depression. 10-14 Moderate Depression. 15-19 Moderately Sever Depression. 20-27 Severe Depression. Rule: - Referral to Behavioral Health PS - Interventions: Yes Attend Stress Management Classes, No Referral to Behavioral Health if PHQ-9 score >9:, No Referral to [facility], No Referral to Physician if PHQ-9 if score is 5-9: - Outcomes/Goals: See list Psychosocial Outcomes/Goals:: ID's personal stressors & 2 strategies to manage stress by discharge - Intervention/Plan: See List Interventions/Plan:: Assess stressors,coping strategies & signs of derpression on admission, Instruct/assist pt to develop coping & personal stress Mgt strategies, Instruct patient to recognize signs & symptoms of depression, Instruct patient to recog - 30-day Reassessments: 30 day Reassessments:: Met Psychosocial - 90-Day Assess Psychosocial - Final Assessmen Patient Health Questionnaire 60-Day Re-eval Assessment 1. Little interest or pleasure in doing things: Not at all 2. Feeling down, depressed, or hopeless: Not at all 3. Trouble falling or staying asleep, or sleeping too much: Not at all 4. Feeling tired or having little energy: Not at all 5. Poor appetite or overeating: Not at all 6. Feeling bad about yourself -- or that you are a failure or have let yourself or your family down: Not at all 7. Trouble concentrating on things, such as reading the newspaper or watching television: Not at all 8. Moving or speaking so slowly that other people could have noticed. Or the opposite - being so fidgety or restless that you have been moving around a lot more than usual: Not at all 9. Thoughts that you would be better off , or of hurting yourself in some way: Not at all Total Score: 0 Self-Efficacy 60-Day Re-eval Assessment We would like to know how confident you are in doing certain activities. Please select your confidence level for:: Select your confidence level for the following using the scale 1-10 where 1 is not at all confident and 10 is totally confident. Your score is the average of all 6 responses. Fatigue: How confident are you that you can keep the fatigue caused by your disease from interfering with the things you want to do? Select Number: 10 Physical Discomfort or Pain: How confident are you that you can keep the physical discomfort or pain of your disease from interfering with the things you want to do? Select Number: 10 Emotional Distress: How confident are you that you can keep the emotional distress caused by your disease from interfering with the things you want to do? Select Number: 10 Other Symptoms or Health Problems: How confident are you that you can keep other symptoms or health problems from interfering with the things you want to do? Select Number: 10 Different Tasks and Activities: How confident are you that you can do the different tasks and activities needed to manage your health condition so as to reduce your need to see a doctor? Select Number: 10 Medication: How confident are you that you can do things other than just taking medication to reduce how much your illness affects your everyday life? Select Number: 10 Total Score:: 10 Nutrition Survey
[2021-12-27 07:26] VITALS: BP 100/74; BP 158/90; BMI 31.8
== END 2022-01-21 23:59 ==
LOC: CR 08:00
PROVIDERS: PCP Registered Nurse; Referring Provider Internal Medicine Cardiovascular Disease; Visit Provider Internal Medicine Cardiovascular Disease
DX: I25.10 Atherosclerotic heart disease of native coronary artery without angina pectoris (principal); Z95.5 Presence of coronary angioplasty implant and graft
CPT/HCPCS: 93798

== ENCOUNTER 2022-01-22 06:56 | Outpatient (RCR) | payer MEDICARE, SELFPAY ==
[2021-12-27 07:26] VITALS: BMI 31.8
[2022-01-22 00:57] VITALS: BP 100/74; BP 158/90
== END 2022-02-20 23:59 ==
LOC: CR 06:56
PROVIDERS: PCP Registered Nurse; Referring Provider Internal Medicine Cardiovascular Disease; Visit Provider Internal Medicine Cardiovascular Disease
DX: I25.10 Atherosclerotic heart disease of native coronary artery without angina pectoris (principal); Z95.5 Presence of coronary angioplasty implant and graft
CPT/HCPCS: 93798

== ENCOUNTER → 2022-01-28 | Outpatient (CLI) | payer MEDICARE, SELFPAY ==
[2021-12-27 07:26] VITALS: BMI 31.8
[2022-01-28 10:22] LABS: PSA,Total- Diagnostic 1.92 ng/mL (0.0-4.0)
== END | disposition home or self-care (01) ==
LOC: MTLAB 07:49
PROVIDERS: PCP Registered Nurse; Referring Provider Urology; Visit Provider Urology
DX: C61 Malignant neoplasm of prostate (principal)
CPT/HCPCS: 36415; 84153

== ENCOUNTER → 2022-02-28 | Outpatient (CLI) | payer MEDICARE, SELFPAY ==
[2021-12-27 07:26] VITALS: BMI 31.8
--- NOTE | 2022-02-28 08:55 | RAD_ITS ---
STUDY: X-RAY - RIGHT KNEE REASON FOR EXAM: Male, 66 years old. KNEE PAIN TECHNIQUE: 4 view(s) of the knee. COMPARISON: None. FINDINGS: Normal visualized distal femur. Normal visualized proximal tibia and fibula. Normal proximal tibiofibular articulation. Normal medial femorotibial compartment. Normal lateral femorotibial compartment. Normal patellofemoral articulation. Degenerative spur is seen along the anterior superior aspect of the patella. The soft tissue structures are unremarkable. RAD/Knee 4 or More Views IMPRESSION: Degenerative spur is seen along the anterior superior aspect of the patella. Electronically Signed: Jayesh Lezama MD at 9:29 EDT ,
== END | disposition home or self-care (01) ==
LOC: MTRAD 08:40
PROVIDERS: PCP Family Medicine; Referring Provider Family Medicine; Visit Provider Family Medicine
DX: M25.561 Pain in right knee (principal)
CPT/HCPCS: 73564

== ENCOUNTER 2022-03-14 08:14 | Outpatient (RCR) | payer MEDICARE, SELFPAY ==
[2021-12-27 07:26] VITALS: BMI 31.8
--- NOTE | 2022-03-14 09:27 | HP.PTEVAL_ITS ---
Patient's Visit Information BHARAT HADLEY is a 66 year old M referred to Physical Therapy by JOE Barillas with a diagnosis of R knee OA. Date of Evaluation: 03/14/22 Physical Therapist: Waqar Beatty DPT, OCS, CSCS - Visit Plan Frequency: 1-2x /Week Duration: 4-6 Weeks Plan: 1-2x/week for ROM, flex and strength R knee. Given ITB/quad stretch adn ROM flexion today with pics. educated on management with activity and keep knee moving. Next session, pt to decide if HEP 1x/week, gym 2x/week or no intervention based on his knee symptoms and willingness to put work in for management. Start NWB ex SLR, clamshell, bridging next session and check current stretches. increazse frequency for modalities if pain returns. belt mobs if ROM no better. - Subjective 5 weeks ago R knee started hurting and went on vacation in January and it got pret ty bad. Ached more at the beach but it did not hold him back too much. Got some ex form [employer] and elevated adn iced when he got home and it did not turn around. Put some heat on it and felt a little better. It was keeping him up at night and he saw doctor. Saw [facility] for cortisone injection which cleared him up and that was last Thursday and no pain since that day a week ago. Pain prior to injection was 8/10 when he was on it. Was comfortable at rest. Pain was parmjit medial. X ray showed a little spur and some degeneration. Was doing SLR and AP. Retired. Spends day walking with , yard work, swimming. Plays a little golf. Those were fine before 5 weeks ago. Had stent in heart and was on TM for cardiac rehab 3x/week in September into October. Steps at home and they did hurt and was doing one step at a time until injection. - Objective Walks back to PT nomral and no antalgia or pain. Trasnfers I without UE. Steps reciprocal without rail or pain. Tightness present min in HS and mod in quad and ITB B. AROM R knee 0-115 adn L knee 0-95(TKA). Some tightness end range both knees. hip aROM WFL adn ankles WFL. Strength is 4+/5 in hip flexion and abd and extension, 5/5 knee ext and flexion B, no pain today. reflexes 2/3 patella and achilles. Sensation WNL to gross light touch B LE. - vlagus and varus. - bounce home. - patellar grind. - ant drawer today. most notable finding is lack ROM in flexion, tightenss in quad and ITB. - Balance/Special Test Scores Functional Gait Assessment Score: 29 % Disability: 3.3400 Lower Extremity Functional Score: 54 - Goals Goal 1:: i approp HEP to minimize pain and manage degenerative changes Goal Time Frame: 2-4 Weeks Goal 2:: Maintain pain 0/10 at all times without limiting activity choices Goal Time Frame: 2-4 Weeks - Rehabilitation Potential Physical Therapy Diagnosis: R knee stiffness and previous pain that limited function. Doing well since injection Rehabilitation Potential: Good - Anticipated Interventions Patient/Client Instruction: Educate patient on: Condition, Plan of Care For the Purpose of:: To increase ROM, To improve muscle performance and motor function, To increase tolerance to activity/condition/position Therapeutic Exercise to Include: Strength training, Flexibilty training, Passive ROM, Active ROM For the Purpose of:: To increase ROM, To improve nutrient delivery to tissue, To improve muscle performance and motor function, To increase tolerance to activity/condition/position Manual Therapy Techniques to Include: Soft tissue mobilization For the Purpose of:: To increase ROM Thank you for the opportunity to evaluate your patient. For Medicare and Medicare HMO plans, please review the plan of care and approve it. It will need to be FAXED BACK to us at [phone] for Medicare purposes. For Medicare only, by signing this I certify the plan of care. Please let me know if there are questions or concerns regarding this plan of care. Physician Signature: Date:
--- NOTE | 2022-05-13 13:22 | HP.PT.NRP ---
BHARAT Dinero HADLEY was seen in my office for initial evaluation on 03/14/22. The following Plan of Care was established for this patient: Initial Frequency: 1-2x /Week Initial Duration: 4-6 Weeks Patient/Client Instruction: Educate patient on: Condition, Plan of Care For the Purpose of:: To increase ROM, To improve muscle performance and motor function, To increase tolerance to activity/condition/position Therapeutic Exercise to Include: Strength training, Flexibilty training, Passive ROM, Active ROM For the Purpose of:: To increase ROM, To improve nutrient delivery to tissue, To improve muscle performance and motor function, To increase tolerance to activity/condition/position Manual Therapy Techniques to Include: Soft tissue mobilization For the Purpose of:: To increase ROM This patient was last seen in our office 03/14/22. Pertinent comments regarding their Physical therapy will appear below: Pt seen for initial evaluation and HEPO instruct. He called to cancel further visits stating he did not need further therapy and would call by April if he needed to return. At this point, it has been over 6 weeks and I will discontinue him from my care. At this point I will be discontinuing this patient from physical therapy. I would be happy to see this patient again in the future if found appropriate by the physician. Thank you! Waqar Beatty, DPT, OCS, CSCS Balance/Gait/Functional tests - Balance/Special Test Scores Functional Gait Assessment Score: 29 % Disability: 3.3400 Lower Extremity Functional Score: 54
== END 2022-03-14 19:00 | disposition home or self-care (01) ==
LOC: PT 08:14
PROVIDERS: PCP Family Medicine; Referring Provider Physician Assistant Surgical; Visit Provider Physician Assistant Surgical
DX: M17.11 Unilateral primary osteoarthritis, right knee (principal)
CPT/HCPCS: 97110; 97161

== ENCOUNTER 2022-06-06 11:45 | Emergency (ER) | payer MEDICARE, SELFPAY ==
[2021-12-27 07:26] VITALS: BMI 31.8
[2022-06-06 11:45] VITALS: BP 109/87; PULSE 71; RESP 18; TEMP 36.1; O2SAT 96; BMI 32.3
--- NOTE | 2022-06-06 12:33 | EDS_ITS ---
HPI <JOE Macias - Last Filed: 06/06/22 14:37> History of Present Illness Chief Complaint: Complaint Narrative Narrative: 66-year-old male with past medical history of HTN, HLD, CAD with 1 stent on Brilinta and aspirin 81 mg, prostate cancer presents with gross hematuria and clots that started yesterday around 3 PM. There is no associated dysuria abdominal pain or flank pain. No fever nausea or vomiting. No history of similar symptoms. PFSH <JOE Macias - Last Filed: 06/06/22 14:37> [facility] Medical History (Reviewed 02/05/22 @ 08:45 by Siria Seth STRAIGHT PIN MAKING MACHINE OPERATOR, STRAIGHT PIN MAKING MACHINE OPERATOR-C) Abnormal cardiac CT angiography Abnormal stress test Atherosclerotic heart disease of [place] coronary artery without angina pectoris Light tobacco smoker <10 cigarettes per day Prostate cancer RBBB (right bundle branch block) Home Medications aspirin 81 mg tablet,delayed release (Adult Low Dose Aspirin) 81 mg PO DAILY [facility] 08/15/21 [History Last Taken 10/15/21] atorvastatin 40 mg tablet 40 mg PO QHS #90 tabs 10/16/21 [Rx Last Taken Unknown] carvedilol 3.125 mg tablet 3.125 mg PO BID #180 tabs 10/16/21 [Rx Last Taken Unknown] nitroglycerin 0.4 mg sublingual tablet 0.4 mg sublingual Q5M PRN Cardiac/Chest Pain #90 tabs 11/01/21 [Rx Last Taken Unknown] sildenafil 100 mg tablet 50 mg PO DAILY PRN sexual activity #5 tabs 11/06/21 [Rx Last Taken Unknown] lisinopril 2.5 mg tablet 2.5 mg PO .COMPLEX #180 tabs 12/16/21 [Rx Last Taken Unknown] ticagrelor 90 mg tablet (Brilinta) 90 mg PO BID #14 tabs 05/27/22 [Rx Last Taken Unknown] Allergy/AdvReac Type Severity Reaction Status Date / Time No Known Allergies Allergy Verified 02/05/22 10:36 Family History (Reviewed 02/05/22 @ 08:45 by Siria Seth STRAIGHT PIN MAKING MACHINE OPERATOR, STRAIGHT PIN MAKING MACHINE OPERATOR-C) Brother Diabetes Mother CVA (cerebral vascular accident) Hypertension Surgical History History of arthroscopy of left knee History of total knee replacement (TKR) Presence of stent in coronary artery (~10/15/21) Social History Smoking Status: Former smoker how long ago did patient quit smokin10/13/21 alcohol intake: current alcohol intake frequency: a few times a week substance use type: does not use caffeine: Yes Type: coffee Number of servings: 6 ROS <JOE Macias - Last Filed: 06/06/22 14:37> ROS ED ROS Narrative Constitutional: Negative for fever, chills, malaise. Eyes: Negative for visual change. ENT: Negative for sore throat, ear pain, rhinorrhea. CVS: Negative for palpitations, chest pain, syncope. Respiratory: Negative for shortness of breath, cough, orthopnea. GI: Negative for abdominal pain, nausea, vomiting, diarrhea, constipation, melena, hematochezia. : Positive for hematuria. Negative for dysuria or frequency. Neuro: Negative for headache, motor/sensory dysfunction. Skin: Negative for rash, abscess, or wound. Musc: Negative for joint pain, swelling, trauma. Heme: Negative for easy bruising, bleeding, lymphadenopathy. EXAM <JOE Macias - Last Filed: 06/06/22 14:37> Physical Exam Narrative Exam Narrative: CONST: Patient sitting in no acute distress. EYES: Normal inspection. NECK: Normal inspection. RESP: No respiratory distress, CTAB. CVS: Regular rate and rhythm, no murmur, no gallop. ABD: Soft and nontender, no guarding or rebound, nondistended. Back: Normal inspection, no CVA tenderness. SKIN: Color normal, no rash, warm, dry, intact. EXTREMITIES: Normal appearance, no pedal edema. NEURO: Oriented x4. PSYCH: Normal affect. Const Vital Signs: 06/06/22 11:45 06/06/22 15:28 Temperature 97 F L Temperature Source Temporal Pulse Rate 71 87 Respiratory Rate 18 16 Blood Pressure 109/87 H 138/74 H Blood Pressure Mean 94 Pulse Ox 96 99 Oxygen Delivery Method Room Air <Dr. Franky Avila DO - Last Filed: 06/06/22 22:17> Physical Exam Const Vital Signs: 06/06/22 11:45 06/06/22 15:28 Temperature 97 F L Temperature Source Temporal Pulse Rate 71 87 Respiratory Rate 18 16 Blood Pressure 109/87 H 138/74 H Blood Pressure Mean 94 Pulse Ox 96 99 Oxygen Delivery Method Room Air [facility] <JOE Macias - Last Filed: 06/06/22 14:37> [facility] Narrative Medical decision making narrative: Patient has painless gross hematuria that started yesterday. He is on Brilinta and aspirin for a cardiac stent. He appears well and nontoxic with normal vital signs. He has a benign abdominal exam and no flank tenderness. Labs show normal hemoglobin at 15.2 and BMP is WNL. UA has blood but no infection. CT shows small mass at the base of the bladder with no signs of obstruction. I spoke with Dr. Albarran who advised stopping Brilinta and continuing aspirin 81 mg and outpatient urology follow-up next week. The patient follows with Dr. Sin and had a cardiac stent placed in September 2021. I spoke with Dr. Arvizu who reviewed his record and said it is okay for him to stop Brilinta now. Patient was counseled to follow-up with urology next week to return to the ER if symptoms change or worsen. He was discharged in stable condition. Attending note: Patient seen and evaluated with corporate physical security supervisor. I perform my own [id number] evaluation. I agree with the plan of work-up. Sent in here by PCP Dr. York, I spoke with her prior to his arrival. Gross blood since 3 PM yesterday. History of prostate cancer couple years ago followed by Dr. Albarran. Radioactive seeding at that time, no surgical intervention. Since then he had a drug-eluting stent placed in his heart this past September. He is on baby aspirin and Brilinta daily. Denies any abdominal pain. Denies lightheaded symptoms. He was seen in the office with urine dip with gross blood and protein. Dr. York spoke with Dr. Albarran, prior to patient's presentation. Exam alert nontoxic patient vital stable. Labs hemoglobin 15.2. Urine results gross blood noted. No infections. Current plan with discussion with urology team for disposition. Last meal was toast at 10 AM. Lab Data Attestation: I reviewed the patient's lab results. Labs: Laboratory Results - last 24 hr 06/06/22 06/06/22 06/06/22 12:40 12:40 12:40 WBC 8.5 RBC 4.56 L Hgb 15.2 Hct 43.5 MCV 95.4 H MCH 33.3 H MCHC 34.9 RDW Std Deviation 45.3 H RDW Coeff of Collin 12.9 Plt Count 321 MPV 9.0 Immature Gran % (Auto) 0.400 Neut % (Auto) 67.4 Lymph % (Auto) 18.7 L Mcpherson % (Auto) 11.0 H Eos % (Auto) 1.8 Baso % (Auto) 0.7 Absolute Neuts (auto) 5.7 Absolute Lymphs (auto) 1.58 Nucleated RBC % 0 PT INR APTT Sodium 141 Potassium 4.4 Chloride 109 H Carbon Dioxide 27.0 Anion Gap 5 BUN 13 Creatinine 1.07 Estim Creat Clear Calc 70.12 Est GFR (MDRD) Af Amer 89 Est GFR (MDRD) Non-Af 73 BUN/Creatinine Ratio 12.1 Glucose 97 Calcium 9.0 Urine Color Red Urine Clarity Turbid Urine pH 8.0 Ur Specific [place] 1.020 Urine Protein 500 H Urine Glucose (UA) Normal Urine Ketones 5 H Urine Occult Blood 50 H Urine Nitrite Negative Urine Bilirubin Negative Urine Urobilinogen Normal Ur Leukocyte Esterase Negative Urine RBC > 100 SEEN Urine WBC 0-5 SEEN Ur Squamous Epith Cells 0 SEEN Urine Bacteria 0 SEEN Urine Mucus 0 SEEN 06/06/22 13:10 WBC RBC Hgb Hct MCV MCH MCHC RDW Std Deviation RDW Coeff of Collin Plt Count MPV Immature Gran % (Auto) Neut % (Auto) Lymph % (Auto) Mcpherson % (Auto) Eos % (Auto) Baso % (Auto) Absolute Neuts (auto) Absolute Lymphs (auto) Nucleated RBC % PT 12.8 INR 1.0 APTT 28.7 Sodium Potassium Chloride Carbon Dioxide Anion Gap BUN Creatinine Estim Creat Clear Calc Est GFR (MDRD) Af Amer Est GFR (MDRD) Non-Af BUN/Creatinine Ratio Glucose Calcium Urine Color Urine Clarity Urine pH Ur Specific [place] Urine Protein Urine Glucose (UA) Urine Ketones Urine Occult Blood Urine Nitrite Urine Bilirubin Urine Urobilinogen Ur Leukocyte Esterase Urine RBC Urine WBC Ur Squamous Epith Cells Urine Bacteria Urine Mucus Radiography Diagnostic Testing: Clinical Impression(s) from Imaging Studies Abdomen/Pelvis CT 06/06/22 13:32 IMPRESSION: 2.3 cm x 4.4 cm soft tissue mass at the base of the bladder more prominent on the right side. A neoplastic process should BE ruled out. Prostatic radiation seeds as well as calcifications are seen within the prostate. Electronically Signed: Jayesh Lezama MD at 14:04 EDT , <Dr. Franky Avila, DO - Last Filed: 06/06/22 22:17> [facility] Narrative Medical decision making narrative: Patient has painless gross hematuria that started yesterday. He is on Brilinta and aspirin for a cardiac stent. He appears well and nontoxic with normal vital signs. He has a benign abdominal exam and no flank tenderness. Labs show normal hemoglobin at 15.2 and BMP is WNL. UA has blood but no infection. CT shows small mass at the base of the bladder with no signs of obstruction. I spoke with Dr. Albarran who advised stopping Brilinta and continuing aspirin 81 mg and outpatient urology follow-up next week. The patient follows with Dr. Sin and had a cardiac stent placed in September 2021. I spoke with Dr. Arvizu who reviewed his record and said it is okay for him to stop Brilinta now. Patient was counseled to follow-up with urology next week to return to the ER if symptoms change or worsen. He was discharged in stable condition. Attending note: Patient seen and evaluated with corporate physical security supervisor. I perform my own fa ce-to-face evaluation. I agree with the plan of work-up. Sent in here by PCP Dr. York, I spoke with her prior to his arrival. Gross blood since 3 PM yesterday. History of prostate cancer couple years ago followed by Dr. Albarran. Radioactive seeding at that time, no surgical intervention. Since then he had a drug-eluting stent placed in his heart this past September. He is on baby aspirin and Brilinta daily. Denies any abdominal pain. Denies lightheaded symptoms. He was seen in the office with urine dip with gross blood and protein. Dr. York spoke with Dr. Albarran, prior to patient's presentation. Exam alert nontoxic patient vital stable. Labs hemoglobin 15.2. Urine results gross blood noted. No infections. Current plan with discussion with urology team for disposition. Last meal was toast at 10 AM. Discussed with urology team requests CT scan holding of Brilinta and outpatient follow-up. Discussed with cardiology team with 8 months of treatment okay to hold Brilinta. CT scan notes concern for bladder mass with urology team updated. Return precautions with hematuria otherwise outpatient work-up. Lab Data Labs: Laboratory Results - last 24 hr 06/06/22 06/06/22 06/06/22 12:40 12:40 12:40 WBC 8.5 RBC 4.56 L Hgb 15.2 Hct 43.5 MCV 95.4 H MCH 33.3 H MCHC 34.9 RDW Std Deviation 45.3 H RDW Coeff of Collni 12.9 Plt Count 321 MPV 9.0 Immature Gran % (Auto) 0.400 Neut % (Auto) 67.4 Lymph % (Auto) 18.7 L Mcpherson % (Auto) 11.0 H Eos % (Auto) 1.8 Baso % (Auto) 0.7 Absolute Neuts (auto) 5.7 Absolute Lymphs (auto) 1.58 Nucleated RBC % 0 PT INR APTT Sodium 141 Potassium 4.4 Chloride 109 H Carbon Dioxide 27.0 Anion Gap 5 BUN 13 Creatinine 1.07 Estim Creat Clear Calc 70.12 Est GFR (MDRD) Af Amer 89 Est GFR (MDRD) Non-Af 73 BUN/Creatinine Ratio 12.1 Glucose 97 Calcium 9.0 Urine Color Red Urine Clarity Turbid Urine pH 8.0 Ur Specific [place] 1.020 Urine Protein 500 H Urine Glucose (UA) Normal Urine Ketones 5 H Urine Occult Blood 50 H Urine Nitrite Negative Urine Bilirubin Negative Urine Urobilinogen Normal Ur Leukocyte Esterase Negative Urine RBC > 100 SEEN Urine WBC 0-5 SEEN Ur Squamous Epith Cells 0 SEEN Urine Bacteria 0 SEEN Urine Mucus 0 SEEN 06/06/22 13:10 WBC RBC Hgb Hct MCV MCH MCHC RDW Std Deviation RDW Coeff of Collin Plt Count MPV Immature Gran % (Auto) Neut % (Auto) Lymph % (Auto) Mcpherson % (Auto) Eos % (Auto) Baso % (Auto) Absolute Neuts (auto) Absolute Lymphs (auto) Nucleated RBC % PT 12.8 INR 1.0 APTT 28.7 Sodium Potassium Chloride Carbon Dioxide Anion Gap BUN Creatinine Estim Creat Clear Calc Est GFR (MDRD) Af Amer Est GFR (MDRD) Non-Af BUN/Creatinine Ratio Glucose Calcium Urine Color Urine Clarity Urine pH Ur Specific [place] Urine Protein Urine Glucose (UA) Urine Ketones Urine Occult Blood Urine Nitrite Urine Bilirubin Urine Urobilinogen Ur Leukocyte Esterase Urine RBC Urine WBC Ur Squamous Epith Cells Urine Bacteria Urine Mucus Radiography Diagnostic Testing: Clinical Impression(s) from Imaging Studies Abdomen/Pelvis CT 06/06/22 13:32 IMPRESSION: 2.3 cm x 4.4 cm soft tissue mass at the base of the bladder more prominent on the right side. A neoplastic process should BE ruled out. Prostatic radiation seeds as well as calcifications are seen within the prostate. Electronically Signed: Jayesh Lezama MD at 14:04 EDT , Discharge Plan Triage Chief Complaint: Complaint ED Midlevel Provider: Amita Rowland ED Provider: Franky Avila Dx/Rx/DC Orders Clinical Impression: Hematuria Instructions: ED Hematuria Prescriptions: No Action sildenafil 100 mg tablet 50 mg PO DAILY PRN (Reason: sexual activity) Qty: 5 3RF Rx Instructions: administer 30 minutes to 4 hours before activity aspirin [Adult Low Dose Aspirin] 81 mg tablet,delayed release (DR/EC) 81 mg PO DAILY carvedilol 3.125 mg tablet 3.125 mg PO BID Qty: 180 3RF atorvastatin 40 mg tablet 40 mg PO QHS Qty: 90 3RF nitroglycerin 0.4 mg tablet, sublingual 0.4 mg sublingual Q5M PRN (Reason: Cardiac/Chest Pain) Qty: 90 6RF lisinopril 2.5 mg tablet 2.5 mg PO .COMPLEX Qty: 180 3RF Hold Instructions: low blood pressure Rx Instructions: 2.5 mg PO qhs; Brilinta 90 mg tablet 90 mg PO BID Qty: 14 0RF Rx Instructions: Awaiting mail order Primary Care Provider: Nay Harris Referrals: Darian Albarran MD [Med Staff - Active Staff] - Nay Harris, DO [Primary Care Provider] - Activity Restrictions/Additional Instructions: Drink plenty of water and as long as you are urinating normally call Dr. Albarran's office on Thursday for an appointment next week. Stop taking Brilinta and keep taking aspirin 81 mg once a day. Disposition Disposition: Home, Self Care Discharge Date/Time: 06/06/22 15:29
[2022-06-06 12:59] LABS: Bacteria 0 SEEN /hpf (None Seen); Mucous, Urine 0 SEEN /hpf (<or=2+); Squamous Epithelial Cells - UA 0 SEEN /hpf (0-5)
[2022-06-06 13:01] LABS: Absolute Lymphocyte Count 1.58 X10^3/uL (0.83-4.51); Absolute Neutrophil Count 5.7 X10^3/uL (2.0-7.7); Basophil# 0.06 X10^3/uL; Basophil% 0.7 % (0-1); Eosinophil# 0.15 X10^3/uL; Eosinophils% 1.8 % (0-5); Hematocrit 43.5 % (40-54); Hemoglobin 15.2 g/dL (13.0-16.5); Lymphocyte # 1.58 X10^3/ul (0.83-4.51); Lymphocyte % 18.7 % (19-41); Mean Corp Hgb Conc 34.9 g/dL (32-36); Mean Corpuscular Hgb 33.3 pg (27.0-32.0); Mean Corpuscular Volume 95.4 fL (80-94); Monocyte# 0.93 X10^3/uL; NRBC Flagged by Analyzer 0 % (0-5); Neutrophil % 67.4 % (47-70); Platelet Count 321 K/mm3 (150-450); RBC Distribution Width CV 12.9 % (11.6-14.6); RBC Distribution Width SD 45.3 fl (35.1-43.9); Red Blood Count 4.56 M/mm3 (4.6-6.2); White Blood Count 8.5 K/mm3 (4.4-11.0)
[2022-06-06 13:07] LABS: Color, Urine Red (Yellow); Glucose, Dipstick Normal (Normal); Ketone-Dipstick 5 mg/dl (Negative); Leukocyte Esterase-Dipstick Negative /ul (Negative); Nitrite-Dipstick Negative (Negative); Occult Blood-Urine 50 /ul (Negative); Protein-Dipstick 500 mg/dl (Negative); Urine Bilirubin Dipstick Negative (Negative); Urine Clarity Turbid (Clear); Urine Urobilinogen Normal (Normal)
[2022-06-06 13:09] LABS: Red Blood Cells-Urine > 100 SEEN /hpf (0-5); White Blood Cells 0-5 SEEN /hpf (0-5)
[2022-06-06 13:13] LABS: Anion Gap 5 (5-15); BUN 13 mg/dL (7-18); BUN/Creat Ratio 12.1 RATIO (10-20); Chloride 109 mmol/L (98-107); Creatinine, Serum 1.07 mg/dL (0.70-1.30); EST Glomerular Filtration Rate 73 mL/min (>60); Est Glom Filt Rate - Afr Amer 89 mL/min (>60); Estimated Creatinine Clearance 70.12 ml/min; Glucose 97 mg/dL (74-106); Potassium 4.4 mmol/L (3.5-5.1); Sodium Level 141 mmol/L (136-145)
--- NOTE | 2022-06-06 13:32 | CT_ITS ---
STUDY: CT ABDOMEN AND PELVIS WITHOUT CONTRAST REASON FOR EXAM: Male, 66 years old. One-day history of hematuria. History of prostate cancer. RADIATION DOSAGE (If Supplied By Facility): CTDIvol = ( 13.29 ) mGy, DLP = ( 756.84 ) mGycm TECHNIQUE: Transaxial images were obtained from the dome of the diaphragm to the symphysis pubis without oral contrast, and without intravenous contrast. Sagittal and coronal images were reconstructed. Individualized dose optimization techniques were used for this CT. COMPARISON: None. FINDINGS: The visualized lung bases are unremarkable. The visualized portions of the heart are within normal limits. Normal liver. Normal gallbladder and extrahepatic biliary system. Normal spleen. There are pancreatic calcifications in the distribution of the ducts consistent with chronic pancreatitis. Normal bilateral adrenal glands. Normal right kidney. Small left parapelvic renal cysts. Normal visualized stomach. Normal small intestine. Normal colon. The appendix is visualized and appears normal. There is scattered atherosclerotic calcification of the abdominal aorta, without a demonstrated aneurysm. Normal inferior vena cava. Normal retroperitoneum. Distended urinary bladder. There is a 2.3 cm x 4.4 cm soft tissue mass at the base of the bladder more prominent on the right side. A bladder neoplastic process should be ruled out. Metallic radiation seeds as well as calcifications are seen within the prostate. There is a small umbilical hernia containing fat. There are degenerative changes of the visualized lumbar spine. Grade 1 anterior listhesis of L5 on S1 with spondylolysis of the pars interarticularis of the L5 vertebrae. CT/Abdomen/Pelvis without Cont IMPRESSION: 2.3 cm x 4.4 cm soft tissue mass at the base of the bladder more prominent on the right side. A neoplastic process should BE ruled out. Prostatic radiation seeds as well as calcifications are seen within the prostate. Electronically Signed: Jayesh Lezama MD at 14:04 EDT ,
[2022-06-06 14:02] LABS: Prothrombin Time (Protime)PT. 12.8 SECONDS (11.7-14.9)
[2022-06-06 14:03] LABS: Partial Thromboplast Time 28.7 Seconds (24.1-36.2)
[2022-06-06 15:28] VITALS: BP 138/74; PULSE 87; RESP 16; O2SAT 99
== END 2022-06-06 15:29 | disposition home or self-care (01) ==
PROVIDERS: Physician Assistant; Emergency Provider Emergency Medicine; PCP Family Medicine; Visit Provider Emergency Medicine
DX: R31.0 Gross hematuria (principal); N32.9 Bladder disorder, unspecified; I25.10 Atherosclerotic heart disease of native coronary artery without angina pectoris; I10 Essential (primary) hypertension; E78.5 Hyperlipidemia, unspecified; Z79.82 Long term (current) use of aspirin; Z79.02 Long term (current) use of antithrombotics/antiplatelets; Z79.899 Other long term (current) drug therapy; Z85.46 Personal history of malignant neoplasm of prostate; Z87.891 Personal history of nicotine dependence; Z95.5 Presence of coronary angioplasty implant and graft
CPT/HCPCS: 74176; 80048; 81001; 85025; 85610; 85730; 99283; A4216

== ENCOUNTER → 2022-07-29 | Outpatient (CLI) | payer MEDICARE, SELFPAY ==
[2021-12-27 07:26] VITALS: BMI 31.8
[2022-07-29 10:24] LABS: Microalbumin,Random Urine 26.9 mg/L (NO RANGE EST.)
[2022-07-29 10:30] LABS: Color, Urine Yellow (Yellow); Glucose, Dipstick Normal (Normal); Ketone-Dipstick Negative (Negative); Leukocyte Esterase-Dipstick Negative /ul (Negative); Nitrite-Dipstick Negative (Negative); Occult Blood-Urine 10 /ul (Negative); Protein-Dipstick 15 mg/dl (Negative); Specific Gravity, Urine 1.025 (1.002-1.030); Urine Bilirubin Dipstick Negative (Negative); Urine Clarity Clear (Clear); Urine Urobilinogen Normal (Normal)
[2022-07-29 10:40] LABS: PSA,Total- Diagnostic 1.67 ng/mL (0.0-4.0)
[2022-07-29 10:44] LABS: ALB/GLOB Ratio 1.1 RATIO (0.9-2.4); AST(SGOT) 15 U/L (15-37); Alanine Aminotransfer ALT/SGPT 30 U/L (16-61); Albumin, Serum 3.9 g/dL (3.2-5.0); Alkaline Phosphatase 99 U/L (45-117); Anion Gap 2 (5-15); BUN 19 mg/dL (7-18); BUN/Creat Ratio 16.5 RATIO (10-20); Calcium,Total 9.4 mg/dL (8.5-10.1); Chloride 111 mmol/L (98-107); Cholesterol 144 mg/dL (200); Creatinine, Serum 1.15 mg/dL (0.70-1.30); EST Glomerular Filtration Rate 67 mL/min (>60); Est Glom Filt Rate - Afr Amer 82 mL/min (>60); Globulin 3.5 g/dL (2.2-4.2); Glucose 101 mg/dL (74-106); High Density Lipoprotein 55 mg/dL; Potassium 4.7 mmol/L (3.5-5.1); Protein, Total 7.4 g/dL (6.4-8.2); Sodium Level 141 mmol/L (136-145); Triglycerides 112 mg/dL; Very Low Density Lipoprotein 22 mg/dL (5-40)
== END | disposition home or self-care (01) ==
LOC: MTLAB 09:15
PROVIDERS: Urology; PCP Family Medicine; Referring Provider Family Medicine; Visit Provider Family Medicine
DX: C61 Malignant neoplasm of prostate (principal); I25.119 Atherosclerotic heart disease of native coronary artery with unspecified angina pectoris; R31.9 Hematuria, unspecified
CPT/HCPCS: 36415; 80053; 80061; 81002; 82043; 84153

== ENCOUNTER → 2023-01-28 | Outpatient (CLI) | payer MEDICARE, SELFPAY ==
[2021-12-27 07:26] VITALS: BMI 31.8
== END | disposition home or self-care (01) ==
PROVIDERS: PCP Family Medicine; Referring Provider Registered Nurse; Visit Provider Registered Nurse
DX: C61 Malignant neoplasm of prostate (principal)
CPT/HCPCS: 36415; 84153

== ENCOUNTER → 2023-07-21 | Outpatient (CLI) | payer MEDICARE, SELFPAY ==
[2021-12-27 07:26] VITALS: BMI 31.8
[2023-07-21 16:24] LABS: Absolute Lymphocyte Count 2.39 X10^3/uL (0.83-4.51); Absolute Neutrophil Count 6.5 X10^3/uL (2.0-7.7); Basophil# 0.08 X10^3/uL; Basophil% 0.8 % (0-1); Eosinophil# 0.22 X10^3/uL; Eosinophils% 2.2 % (0-5); Hematocrit 50.9 % (40-54); Hemoglobin 16.8 g/dL (13.0-16.5); Lymphocyte # 2.39 X10^3/ul (0.83-4.51); Lymphocyte % 23.8 % (19-41); Mean Corpuscular Hgb 31.3 pg (27.0-32.0); Mean Platelet Vol. 8.8 fl (6.2-12.0); Monocyte# 0.82 X10^3/uL; Monocyte% 8.2 % (0-10); NRBC Flagged by Analyzer 0 % (0-5); Neutrophil # 6.49 X10^3/uL (2.7-7.7); Neutrophil % 64.7 % (47-70); Platelet Count 406 K/mm3 (150-450); RBC Distribution Width CV 12.9 % (11.6-14.6); RBC Distribution Width SD 44.6 fl (35.1-43.9); Red Blood Count 5.36 M/mm3 (4.6-6.2)
[2023-07-21 16:56] LABS: Anion Gap 2 (5-15); BUN 10 mg/dL (7-18); BUN/Creat Ratio 8.7 RATIO (10-20); Calcium,Total 9.3 mg/dL (8.5-10.1); Chloride 107 mmol/L (98-107); Creatinine, Serum 1.15 mg/dL (0.70-1.30); EST Glomerular Filtration Rate 67 mL/min (>60); Est Glom Filt Rate - Afr Amer 81 mL/min (>60); Glucose 127 mg/dL (74-106); Sodium Level 139 mmol/L (136-145)
== END | disposition home or self-care (01) ==
PROVIDERS: PCP Family Medicine; Referring Provider Physician Assistant; Visit Provider Physician Assistant
DX: Z01.818 Encounter for other preprocedural examination (principal); Z01.810 Encounter for preprocedural cardiovascular examination
CPT/HCPCS: 36415; 80048; 85025

== ENCOUNTER → 2023-07-21 | Outpatient (CLI) | payer MEDICARE, SELFPAY ==
[2021-12-27 07:26] VITALS: BMI 31.8
[2023-07-21 16:14] LABS: PSA,Total- Diagnostic 0.82 ng/mL (0.0-4.0)
== END | disposition home or self-care (01) ==
PROVIDERS: PCP Family Medicine; Referring Provider Urology; Visit Provider Urology
DX: C61 Malignant neoplasm of prostate (principal)
CPT/HCPCS: 36415; 84153

== ENCOUNTER → 2023-08-14 | Outpatient (CLI) | payer MEDICARE, SELFPAY ==
[2021-12-27 07:26] VITALS: BMI 31.8
--- NOTE | 2023-08-14 16:31 | CT_ITS ---
STUDY: CT ABDOMEN AND PELVIS WITH AND WITHOUT CONTRAST REASON FOR EXAM: Male, 67 years old. GROSS HEMATURIA RADIATION DOSAGE (If Supplied By Facility): CTDIvol = ( 23.44 ) mGy, DLP = ( 3915.02 ) mGycm TECHNIQUE: Transaxial images were obtained from the dome of the diaphragm to the symphysis pubis without oral contrast. IV 100mL Isovue-300 was administered. Sagittal and coronal images were reconstructed. Individualized dose optimization techniques were used for this CT. COMPARISON: None. FINDINGS: The visualized lung bases are unremarkable. The visualized portions of the heart are within normal limits. Normal liver. The gallbladder is contracted. Normal spleen. Normal pancreas. Normal bilateral adrenal glands. Normal right kidney. Normal left kidney. Small parapelvic cysts in both kidneys. Normal visualized stomach. Normal small intestine. Normal colon. The appendix is visualized and appears normal. Normal abdominal aorta. Normal inferior vena cava. Normal retroperitoneum. Diffuse bladder wall thickening but the bladder is nondistended. There are prostatic calcifications. Possible radiation seeds in the prostate gland. Normal abdominal wall. 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 2 mm of anterolisthesis of L5 on S1 consistent with grade [address]/CT Abd/Pelvis W/WO Contrast IMPRESSION: 1. No renal or ureteral stone. 2. Diffuse bladder wall thickening likely due to lack of distention. 3. Prostatic calcifications and possibly radiation seeds in the prostate gland. 4. Small parapelvic cysts of both kidneys. Electronically Signed: Levi Magana MD at 22:42 EST ,
== END | disposition home or self-care (01) ==
LOC: CT 16:29
PROVIDERS: PCP Family Medicine; Referring Provider Urology; Visit Provider Urology
DX: R31.0 Gross hematuria (principal)
CPT/HCPCS: 74178; Q9967

== ENCOUNTER → 2024-01-27 | Outpatient (CLI) | payer MEDICARE, SELFPAY ==
[2021-12-27 07:26] VITALS: BMI 31.8
--- NOTE | 2024-01-27 07:45 | ECHOD_ITS ---
Reason For Study: CAD/ASHD Procedure This was a 2D Doppler, Color Flow transthoracic echocardiogram. Exam performed in department. Left Ventricle Normal LV size. Left ventricular systolic function is normal. The left ventricular ejection fraction is 55 %. Stage 1 diastolic dysfunction. No regional wall motion abnormalities noted. Right Ventricle Normal RV size. Normal systolic function. Atria Normal left atrium. Normal right atrium. Tricuspid Valve Normal tricuspid valve. Mild (1+) tricuspid valve insufficiency. Pulmonary artery systolic pressure is 35 mmHg. Aortic Valve Trisinus/trileaflet aortic valve. Mild (1+) aortic valve insufficiency. Pulmonic Valve Normal pulmonic valve. Great Vessels Normal aortic root. The pulmonary artery is normal size. Normal inferior vena cava. Pericardium/Pleural No pericardial effusion. MMode/2D Measurements & Calculations LVIDd: 5.5 cm IVSd: 1.0 cm Ao root diam: 3.9 cm LVIDs: 3.9 cm LVPWd: 1.0 cm RVDd: 4.0 cm FS: 28.6 % LAV(MOD-bp): 39.5 ml LVAd ap4: 31.1 cm2 SV(MOD-sp4): 57.5 ml LAV(MOD-bp) Indexed: 18.0 ml/m2 LVLd ap4: 7.6 cm LAV(MOD-sp2): 43.4 ml EDV(MOD-sp4): 104.8 ml LAV(MOD-sp4): 35.4 ml EDV(sp4-el): 109.1 ml LVAs ap4: 19.4 cm2 LVLs ap4: 6.6 cm ESV(MOD-sp4): 47.3 ml ESV(sp4-el): 48.5 ml EF(MOD-sp4): 54.8 % EF(sp4-el): 55.6 % SV(sp4-el): 60.6 ml LA dimension(2D): 4.0 cm LA A4 area: 14.3 cm2 RA A4 area: 13.9 cm2 TAPSE: 2.3 cm Time Measurements MV dec time: 0.24 sec Doppler Measurements & Calculations MV E max marcus: 55.7 cm/sec Lat Peak E' Marcus: 10.1 cm/sec Med Peak E' Marcus: 5.9 cm/sec MV A max marcus: 78.0 cm/sec E/E' lat: 5.5 E/E' med: 9.5 MV E/A: 0.71 Ao V2 max: 101.2 cm/sec AI max marcus: 407.9 cm/sec MV dec slope: 236.8 cm/sec2 Ao max P.1 mmHg AI max P.6 mmHg Ao V2 mean: 77.7 cm/sec Ao mean P.5 mmHg AI dec slope: 83.0 cm/sec2 Ao V2 VTI: 24.6 cm AI P1/2t: 1439 msec AV (velocity ratio): 0.81 LV V1 max: 88.5 cm/sec PA V2 max: 94.0 cm/sec TR max marcus: 283.4 cm/sec LV V1 max P.1 mmHg TR max P.1 mmHg LV V1 mean P.8 mmHg LV V1 mean: 63.5 cm/sec LV V1 VTI: 19.8 cm ECHO/Echo Complete Interpretation Summary Normal LV size. Left ventricular systolic function is normal. The left ventricular ejection fraction is 55 %. Stage 1 diastolic dysfunction. Mild (1+) aortic valve insufficiency. Ordering Physician: Marlon Gonsalves Referring Physician: Calista Khan Performed By: Brandi Diaz, RDCS, RVT
== END | disposition home or self-care (01) ==
PROVIDERS: PCP Family Medicine; Referring Provider Internal Medicine Cardiovascular Disease; Visit Provider Internal Medicine Cardiovascular Disease
DX: I25.10 Atherosclerotic heart disease of native coronary artery without angina pectoris (principal)
CPT/HCPCS: 93306

== ENCOUNTER → 2024-02-15 | Outpatient (CLI) | payer MEDICARE, SELFPAY ==
[2021-12-27 07:26] VITALS: BMI 31.8
== END | disposition home or self-care (01) ==
PROVIDERS: PCP Family Medicine; Referring Provider Urology; Visit Provider Urology
DX: C61 Malignant neoplasm of prostate (principal)
CPT/HCPCS: 36415; 84153

== ENCOUNTER → 2024-09-22 | Outpatient (CLI) | payer MEDICARE, SELFPAY ==
[2021-12-27 07:26] VITALS: BMI 31.8
[2024-09-22 10:30] LABS: Absolute Lymphocyte Count 1.88 X10^3/uL (0.83-4.51); Absolute Neutrophil Count 5.4 X10^3/uL (2.0-7.7); Basophil# 0.05 X10^3/uL; Basophil% 0.6 % (0-1); Eosinophil# 0.31 X10^3/uL; Eosinophils% 3.7 % (0-5); Hematocrit 46.5 % (40-54); Hemoglobin 15.5 g/dL (13.0-16.5); Lymphocyte # 1.88 X10^3/ul (0.83-4.51); Lymphocyte % 22.5 % (19-41); Mean Corp Hgb Conc 33.3 g/dL (32-36); Mean Platelet Vol. 9.1 fl (6.2-12.0); Monocyte# 0.71 X10^3/uL; Monocyte% 8.5 % (0-10); NRBC Flagged by Analyzer 0 % (0-5); Neutrophil # 5.39 X10^3/uL (2.7-7.7); Neutrophil % 64.5 % (47-70); Platelet Count 343 K/mm3 (150-450); RBC Distribution Width CV 12.9 % (11.6-14.6); RBC Distribution Width SD 43.9 fl (35.1-43.9); White Blood Count 8.4 K/mm3 (4.4-11.0)
[2024-09-22 11:50] LABS: ALB/GLOB Ratio 0.9 RATIO (0.9-2.4); AST(SGOT) 18 U/L (15-37); Alanine Aminotransfer ALT/SGPT 30 U/L (16-61); Albumin, Serum 3.5 g/dL (3.2-5.0); Alkaline Phosphatase 88 U/L (45-117); Anion Gap 4 (5-15); BUN 14 mg/dL (7-18); BUN/Creat Ratio 13.1 RATIO (10-20); Calcium,Total 8.9 mg/dL (8.5-10.1); Chloride 110 mmol/L (98-107); Cholesterol 93 mg/dL (200); Creatinine, Serum 1.07 mg/dL (0.70-1.30); EST Glomerular Filtration Rate 73 mL/min (>60); Est Glom Filt Rate - Afr Amer 88 mL/min (>60); Globulin 3.7 g/dL (2.2-4.2); Glucose 107 mg/dL (74-106); High Density Lipoprotein 36 mg/dL; Potassium 4.1 mmol/L (3.5-5.1); Protein, Total 7.2 g/dL (6.4-8.2); Sodium Level 141 mmol/L (136-145); Triglycerides 97 mg/dL; Very Low Density Lipoprotein 19 mg/dL (5-40)
== END | disposition home or self-care (01) ==
LOC: MTLAB 09:12
PROVIDERS: PCP Family Medicine; Referring Provider Family Medicine; Visit Provider Family Medicine
DX: I25.119 Atherosclerotic heart disease of native coronary artery with unspecified angina pectoris (principal); E78.5 Hyperlipidemia, unspecified
CPT/HCPCS: 36415; 80053; 80061; 85025

== ENCOUNTER → 2024-10-04 | Outpatient (CLI) | payer MEDICARE, SELFPAY ==
[2021-12-27 07:26] VITALS: BMI 31.8
== END | disposition home or self-care (01) ==
LOC: CVS 08:49
PROVIDERS: PCP Family Medicine; Referring Provider Family Medicine; Visit Provider Family Medicine
DX: Z13.6 Encounter for screening for cardiovascular disorders (principal)
CPT/HCPCS: 76706

== ENCOUNTER → 2024-11-10 | Outpatient (CLI) | payer MEDICARE, SELFPAY ==
[2021-12-27 07:26] VITALS: BMI 31.8
[2024-11-10 11:31] LABS: PSA,Total- Diagnostic 0.32 ng/mL (0.00-4.00)
== END | disposition home or self-care (01) ==
LOC: MTLAB 09:16
PROVIDERS: PCP Family Medicine; Referring Provider Urology; Visit Provider Urology
DX: C61 Malignant neoplasm of prostate (principal)
CPT/HCPCS: 36415; 84153